=== PATIENT | male | born 1935 | race Caucasian/White ===

== ENCOUNTER 2020-03-12 10:33 | Inpatient (IN) | payer OTHER, MEDICARE ==
[2020-03-12] MEDS ORDERED: SODIUM CHLORIDE 1,000 ML IV STA ×2 (11:10→14:23)
[2020-03-12] MEDS ORDERED: ONDANSETRON 4 MG/2 ML VIAL IVPUSH ONE ×2 (11:11→14:37)
[2020-03-12] MEDS ORDERED: FAMOTIDINE 20 MG/50 ML IVPB 20 MG/50 ML MG IVPB ONE ×2 (11:11→11:38)
[2020-03-12 11:28] VITALS: BMI 28.1
[2020-03-12 12:09] LABS: BASO % 0.2 % (0-2.0); EOS % 0.5 % (0-4.5); HEMATOCRIT 31.9 % (35.4-49); HEMOGLOBIN 10.7 GM/dL (11.7-16.9); LYMPH % 8.1 % (8-40); MCH 35.6 pg (25.7-33.7); MCHC 33.6 g/dl (32.0-35.9); MEAN CELL VOLUME 106.1 fl (80-96); MEAN PLT VOLUME 11.2 fl (7.5-11.1); MONO % 6.4 % (3.8-10.2); NEUT % 84.8 % (42.8-82.8); PLATELET COUNT 79 K/MM3 (134-434); RBC 3.01 M/mm3 (4.00-5.60); RDW 15.8 % (11.9-15.9); WHITE BLOOD COUNT 7.9 K/mm3 (4.0-10.0)
[2020-03-12 12:11] LABS: INR 1.03 (0.83-1.09); PROTHROMBIN TIME (PATIENT) 12.6 SEC (9.7-13.0)
[2020-03-12 12:31] LABS: ANISOCYTOSIS 2+; MACROCYTOSIS 2+; OVALOCYTE 1+; PLATELET ESTIMATE DECREASED
[2020-03-12 12:35] LABS: POTASSIUM 4.2 mmol/L (3.5-5.1)
[2020-03-12 12:37] LABS: CALCIUM 9.8 mg/dL (8.5-10.1)
[2020-03-12 12:38] LABS: ALBUMIN 3.1 g/dl (3.4-5.0); BLOOD UREA NITROGEN 44.9 mg/dL (7-18); MAGNESIUM 2.2 mg/dL (1.8-2.4)
[2020-03-12 12:41] LABS: CREATININE 1.6 mg/dL (0.55-1.3)
[2020-03-12 12:42] LABS: BILIRUBIN,TOTAL 0.9 mg/dL (0.2-1); TOT PROT 7.8 g/dl (6.4-8.2)
[2020-03-12] MEDS ORDERED: SODIUM CHLORIDE 1,000 ML IV SCH (15:00)
[2020-03-12] MEDS ORDERED: PIPERACILLIN/TAZOB 4.5 GM 4.5 GM in DEXTROSE 5%-WATER 100 ML IVPB ONE (17:04)
[2020-03-12 19:30] VITALS: BP 123/69; PULSE 108
[2020-03-12] MEDS ORDERED: ACETAMINOPHEN 1000 MG/100 ML VIAL (NON FORMULARY) IVPB ONE (20:46)
[2020-03-12] MEDS ORDERED: ACETAMINOPHEN INJECTION 100 ML IVPB ONE (20:50)
[2020-03-12 20:54] VITALS: TEMP 99.5
== END 2020-03-13 01:09 | disposition short-term general hospital (02) | DRG 394 ==
LOC: JER 10:33 → SUPCPDRO 10:33 → JERBED 17:32
DX: K35.80 Unspecified acute appendicitis (principal); K56.609 Unspecified intestinal obstruction, unspecified as to partial versus complete obstruction; D46.9 Myelodysplastic syndrome, unspecified; E86.0 Dehydration; Z85.46 Personal history of malignant neoplasm of prostate
CPT/HCPCS: 36415; 71045-TC-FY; 74019-TC-FY; 74176-TC; 80053; 83605; 83690; 83735; 85025; 85610; 87040; 93005; 93010; 99285-25; C9803; J0131; Q9967; U0003

== ENCOUNTER 2020-04-10 13:22 | Day surgery (SDC) | payer OTHER, MEDICARE ==
[2020-04-10 08:23] LABS: BASO % 0.4 % (0-2.0); EOS % 2.4 % (0-4.5); HEMATOCRIT 23.2 % (35.4-49); HEMOGLOBIN 7.6 GM/dL (11.7-16.9); LYMPH % 44.4 % (8-40); MCH 33.4 pg (25.7-33.7); MCHC 32.7 g/dl (32.0-35.9); MEAN CELL VOLUME 102.3 fl (80-96); MEAN PLT VOLUME 10.5 fl (7.5-11.1); MONO % 18.2 % (3.8-10.2); NEUT % 34.6 % (42.8-82.8); PLATELET COUNT 81 K/MM3 (134-434); RBC 2.27 M/mm3 (4.00-5.60); RDW 19.8 % (11.9-15.9); WHITE BLOOD COUNT 3.4 K/mm3 (4.0-10.0)
[2020-04-10 08:54] LABS: BILIRUBIN,TOTAL 0.8 mg/dL (0.2-1); BLOOD UREA NITROGEN 34.2 mg/dL (7-18); CALCIUM 8.6 mg/dL (8.5-10.1); CREATININE 1.4 mg/dL (0.55-1.3); MAGNESIUM 1.6 mg/dL (1.8-2.4); POTASSIUM 4.3 mmol/L (3.5-5.1); TOT PROT 7.8 g/dl (6.4-8.2)
[2020-04-10 14:47] VITALS: BP 110/56; PULSE 77; TEMP 98.6
== END 2020-04-10 15:03 | disposition home or self-care (01) ==
LOC: JONCBLOOD 13:22
PROVIDERS: ATTEND Internal Medicine Hematology & Oncology
PROC: 30233N1 Transfusion of Nonautologous Red Blood Cells into Peripheral Vein, Percutaneous Approach (ICD-10-PCS; principal; 2020-04-10)
DX: D46.9 Myelodysplastic syndrome, unspecified (principal)
CPT/HCPCS: 36415; 36430; 36511; 80053; 83735; 85025; 86850; 86900; 86901; 86922; P9016; P9038

== ENCOUNTER 2020-04-11 07:24 | Day surgery (SDC) | payer OTHER, MEDICARE ==
[2020-04-11] MEDS ORDERED: MAGNESIUM 1GM/D5W - 1 GM/100 ML IVPB IVPB SCH (08:00)
[2020-04-11] MEDS ORDERED: MAGNESIUM SULFATE IN WATER 2 GM/50 ML IVPB IVPB ONE (09:00)
[2020-04-11 14:50] LABS: BASO % 0.5 % (0-2.0); HEMATOCRIT 27.9 % (35.4-49); HEMOGLOBIN 9.4 GM/dL (11.7-16.9); LYMPH % 35.5 % (8-40); MCHC 33.5 g/dl (32.0-35.9); MEAN CELL VOLUME 95.6 fl (80-96); MONO % 23.4 % (3.8-10.2); NEUT % 39.6 % (42.8-82.8); PLATELET COUNT 89 K/MM3 (134-434); RBC 2.92 M/mm3 (4.00-5.60); RDW 23.8 % (11.9-15.9)
[2020-04-11 17:32] LABS: ANISOCYTOSIS 2+; MACROCYTOSIS 0; OVALOCYTE 1+; PLATELET ESTIMATE DECREASED; TARGET CELLS 1+
== END 2020-04-11 13:00 | disposition home or self-care (01) ==
LOC: JONCNONCHE 07:24
PROVIDERS: ATTEND Internal Medicine Hematology & Oncology
DX: Z53.8 Procedure and treatment not carried out for other reasons (principal)
CPT/HCPCS: 36415; 85025; 96365

== ENCOUNTER 2020-05-01 08:15 | Day surgery (SDC) | payer OTHER, MEDICARE ==
[2020-05-01] MEDS ORDERED: TBO-FILGRASTIM 480 MCG/0.8 ML DISP.SYRIN SQ ONE (10:00)
[2020-05-01] MEDS ORDERED: EPOETIN ALFA-EPBX 40,000 UNIT/ML VIAL SQ ONE (10:00)
[2020-05-01 12:36] VITALS: BP 142/72; PULSE 97; TEMP 98.1
== END 2020-05-01 08:50 | disposition home or self-care (01) ==
LOC: JONCCHEMO 08:15
PROVIDERS: ATTEND Internal Medicine
PROC: 3E013GC Introduction of Other Therapeutic Substance into Subcutaneous Tissue, Percutaneous Approach (ICD-10-PCS; principal; 2020-05-01)
PROC: 3E013GC Introduction of Other Therapeutic Substance into Subcutaneous Tissue, Percutaneous Approach (ICD-10-PCS; 2020-05-01)
DX: D46.9 Myelodysplastic syndrome, unspecified (principal)
CPT/HCPCS: 96372; J1447; Q5106

== ENCOUNTER 2021-04-23 09:29 | Day surgery (SDC) | payer OTHER, MEDICARE ==
[2021-04-23] MEDS ORDERED: EPOETIN ALFA EPBX SQ ONE (10:00)
[2021-04-23] MEDS ORDERED: TBO-FILGRASTIM 480 MCG/0.8 ML DISP.SYRIN SQ ONE (10:00)
[2021-04-23 16:43] VITALS: BP 126/88; PULSE 88; TEMP 97.7
== END 2021-04-23 13:15 | disposition home or self-care (01) ==
LOC: JONCCHEMO 09:29
PROVIDERS: ATTEND Internal Medicine Hematology & Oncology
PROC: 3E033GC Introduction of Other Therapeutic Substance into Peripheral Vein, Percutaneous Approach (ICD-10-PCS; principal; 2021-04-23)
PROC: 3E033GC Introduction of Other Therapeutic Substance into Peripheral Vein, Percutaneous Approach (ICD-10-PCS; 2021-04-23)
DX: Z76.89 Persons encountering health services in other specified circumstances (principal); D46.9 Myelodysplastic syndrome, unspecified
CPT/HCPCS: 96372; J1447; Q5106

== ENCOUNTER 2021-04-30 07:16 | Day surgery (SDC) | payer OTHER, MEDICARE ==
[2021-04-30] MEDS ORDERED: TBO-FILGRASTIM 480 MCG/0.8 ML DISP.SYRIN SQ ONE (10:00)
[2021-04-30] MEDS ORDERED: EPOETIN ALFA EPBX SQ ONE (10:00)
[2021-04-30 15:13] VITALS: BP 122/61; PULSE 86; TEMP 98.5
== END 2021-04-30 13:12 | disposition home or self-care (01) ==
LOC: JONCCHEMO 07:16
PROVIDERS: ATTEND Internal Medicine Hematology & Oncology
DX: D46.9 Myelodysplastic syndrome, unspecified (principal); D69.59 Other secondary thrombocytopenia; Z76.89 Persons encountering health services in other specified circumstances
CPT/HCPCS: 96367; 96372; 96413; 96415; J1447; Q5106

== ENCOUNTER 2021-07-04 13:07 | Inpatient (IN) | payer OTHER, MEDICARE ==
[2021-07-04 14:28] LABS: BASO % 0.2 % (0-2.0); EOS % 0.4 % (0-4.5); HEMATOCRIT 21.9 % (35.4-49); HEMOGLOBIN 7.4 GM/dL (11.7-16.9); MCH 34.5 pg (25.7-33.7); MCHC 33.6 g/dl (32.0-35.9); MEAN CELL VOLUME 102.9 fl (80-96); MEAN PLT VOLUME 10.8 fl (7.5-11.1); MONO % 8.7 % (3.8-10.2); NEUT % 78.7 % (42.8-82.8); PLATELET COUNT 65 10^3/uL (134-434); RBC 2.13 M/mm3 (4.00-5.60); RDW 18.6 % (11.9-15.9); WHITE BLOOD COUNT 12.1 K/mm3 (4.0-10.0)
[2021-07-04 14:37] LABS: EPI CELLS 16 /uL (0-25.1); HYALINE CASTS 3 /uL (0-3.1); URINE APPEARANCE CLOUDY; URINE BACTERIA 11 /uL (0-1359); URINE BILIRUBIN NEGATIVE (NEGATIVE); URINE COLOR ORANGE; URINE GLUCOSE (UA) NEGATIVE (NEGATIVE); URINE KETONE NEGATIVE (NEGATIVE); URINE LEUK ESTERASE 1+ (NEGATIVE); URINE NITRITE NEGATIVE (NEGATIVE); URINE PROTEIN 2+ (NEGATIVE); URINE RBC 4162 /uL (0-23.9); URINE UROBILINOGEN 0.2 mg/dL (0.2-1.0); URINE WBC 170 /uL (0-25.8)
[2021-07-04 14:46] LABS: ALBUMIN 3.2 g/dl (3.4-5.0); BLOOD UREA NITROGEN 55.9 mg/dL (7-18); CALCIUM 8.8 mg/dL (8.5-10.1)
[2021-07-04 14:49] LABS: CREATININE 2.4 mg/dL (0.55-1.3)
[2021-07-04 14:51] LABS: BILIRUBIN,TOTAL 0.7 mg/dL (0.2-1); TOT PROT 7.5 g/dl (6.4-8.2)
[2021-07-04] MEDS ORDERED: SODIUM CHLORIDE 0.9% 500 ML INFUS.BAG IV ONE (16:17)
[2021-07-04] MEDS ORDERED: CEFTRIAXONE 1 GM/50 ML BAG ONE (16:50)
[2021-07-04] MEDS ORDERED: TAMSULOSIN HCL 0.4 MG CAP PO ONE (16:51)
[2021-07-04] MEDS ORDERED: LIDOCAINE HCL 2% JELLY 10 ML CARTRIDGE ONE ×2 (17:12→19:14)
[2021-07-04] MEDS ORDERED: TAMSULOSIN HCL 0.4 MG CAP ONE (17:47)
[2021-07-04] MEDS ORDERED: amLODIPine BESYLATE 5 MG TABLET (FP) PO SCH (18:00)
[2021-07-04] MEDS ORDERED: FAMOTIDINE 10 MG TABLET PO SCH (18:15)
[2021-07-04] MEDS ORDERED: ACETAMINOPHEN 1000 MG/100 ML BAG IVPB ONE (19:20)
[2021-07-04] MEDS ORDERED: oxyCODONE HCL 5 MG TABLET PO ONE (21:10)
[2021-07-04] MEDS ORDERED: ACETAMINOPHEN 1000 MG/100 ML BAG IVPB PRN (21:11)
[2021-07-04] MEDS ORDERED: HEPARIN NA (PORCINE) 5,000 UNITS/ML 1ML VIAL SQ SCH (22:00)
[2021-07-04] MEDS ORDERED: METOPROLOL TARTRATE 50 MG TABLET (FP) PO SCH (22:00)
[2021-07-04 22:47] VITALS: BMI 29.7
[2021-07-05] MEDS ORDERED: METOPROLOL TARTRATE 50 MG TABLET (FP) PO SCH (07:00)
[2021-07-05] MEDS ORDERED: LIDOCAINE HCL/PF 2% SDV 5ML VIAL ONE (07:59)
[2021-07-05] MEDS ORDERED: PROPOFOL 20 ML ONE ×2 (07:59)
[2021-07-05] MEDS ORDERED: ONDANSETRON 4 MG/2 ML VIAL IVPUSH PRN ×2 (08:18→09:08)
[2021-07-05] MEDS ORDERED: ROCURONIUM BROMIDE 50 MG/5 ML SYRINGE ONE (08:26)
[2021-07-05] MEDS ORDERED: SUCCINYLCHOLINE CHLORIDE 200 MG/10 ML SYRINGE ONE (08:26)
[2021-07-05] MEDS ORDERED: SODIUM CHLORIDE 1,000 ML IV SCH (08:30)
[2021-07-05 09:07] LABS: BASO % 0.4 % (0-2.0); EOS % 0.9 % (0-4.5); HEMATOCRIT 21.3 % (35.4-49); HEMOGLOBIN 7.5 GM/dL (11.7-16.9); LYMPH % 21.3 % (8-40); MCH 37.2 pg (25.7-33.7); MCHC 34.9 g/dl (32.0-35.9); MEAN CELL VOLUME 106.6 fl (80-96); MEAN PLT VOLUME 11.4 fl (7.5-11.1); MONO % 9.9 % (3.8-10.2); NEUT % 67.5 % (42.8-82.8); PLATELET COUNT 65 10^3/uL (134-434); RDW 18.6 % (11.9-15.9); WHITE BLOOD COUNT 6.1 K/mm3 (4.0-10.0)
[2021-07-05] MEDS ORDERED: ACETAMINOPHEN 1000 MG/100 ML BAG IVPB PRN (09:08)
[2021-07-05 09:25] LABS: ALBUMIN 3.1 g/dl (3.4-5.0); BLOOD UREA NITROGEN 48.2 mg/dL (7-18)
[2021-07-05] MEDS ORDERED: cefTRIAXone SODIUM 1 GM VIAL IVPB ONE (09:25)
[2021-07-05 09:28] LABS: CALCIUM 8.7 mg/dL (8.5-10.1)
[2021-07-05 09:30] LABS: BILIRUBIN,TOTAL 0.8 mg/dL (0.2-1); TOT PROT 7.4 g/dl (6.4-8.2)
[2021-07-05] MEDS ORDERED: cefTRIAXone SODIUM 1 GM VIAL ONE (09:30)
[2021-07-05 09:32] LABS: INR 1.18 (0.83-1.09); PROTHROMBIN TIME (PATIENT) 13.6 SEC (9.7-13.0)
[2021-07-05 09:33] LABS: ACTIVATED PTT 31.9 SECONDS (25.2-36.5)
[2021-07-05] MEDS ORDERED: CEFTRIAXONE 1 GM in DEXTROSE 5%-WATER - 50 ML IVPB SCH (10:00)
[2021-07-05] MEDS: SODIUM CHLORIDE 1,000 ML IV SCH (10:00)
[2021-07-05] MEDS ORDERED: POLYETHYLENE GLYCOL (HEALTHYLAX) 3350 17 GM PACKET PO SCH (10:00)
[2021-07-05] MEDS ORDERED: HYDROCHLOROTHIAZIDE 12.5 MG CAPSULE (FP) PO SCH (10:00)
[2021-07-05] MEDS ORDERED: LISINOPRIL 5 MG TABLET PO SCH (10:00)
[2021-07-05] MEDS ORDERED: TAMSULOSIN HCL 0.4 MG CAP PO SCH (10:00)
[2021-07-05] MEDS: CEFTRIAXONE 1 GM in DEXTROSE 5%-WATER - 50 ML IVPB SCH (10:05)
[2021-07-05 10:08] LABS: ANISOCYTOSIS 2+; MACROCYTOSIS 2+; OVALOCYTE 2+
[2021-07-05] MEDS: POLYETHYLENE GLYCOL (HEALTHYLAX) 3350 17 GM PACKET PO SCH (10:16)
[2021-07-05] MEDS: FAMOTIDINE 10 MG TABLET PO SCH (10:16)
[2021-07-05] MEDS: TAMSULOSIN HCL 0.4 MG CAP PO SCH (10:16)
[2021-07-05] MEDS: METOPROLOL TARTRATE 50 MG TABLET (FP) PO SCH (22:48)
[2021-07-05] MEDS ORDERED: ACETAMINOPHEN 1000 MG/100 ML BAG IVPB ONE (23:40)
[2021-07-06] MEDS ORDERED: oxyCODONE HCL 5 MG TABLET PO PRN (01:10)
[2021-07-06 02:35] LABS: HEMATOCRIT 21.6 % (35.4-49); HEMOGLOBIN 7.3 GM/dL (11.7-16.9); MCH 33.3 pg (25.7-33.7); MCHC 33.9 g/dl (32.0-35.9); MEAN CELL VOLUME 98.3 fl (80-96); MEAN PLT VOLUME 10.5 fl (7.5-11.1); PLATELET COUNT 72 10^3/uL (134-434); RDW 22.4 % (11.9-15.9)
[2021-07-06 02:48] LABS: INR 1.21 (0.83-1.09); PROTHROMBIN TIME (PATIENT) 13.9 SEC (9.7-13.0)
[2021-07-06 02:50] LABS: ACTIVATED PTT 32.8 SECONDS (25.2-36.5)
[2021-07-06] MEDS: METOPROLOL TARTRATE 50 MG TABLET (FP) PO SCH ×2 (07:02→21:49)
[2021-07-06 09:05] LABS: BASO % 0.3 % (0-2.0); EOS % 1.3 % (0-4.5); HEMATOCRIT 22.3 % (35.4-49); HEMOGLOBIN 7.6 GM/dL (11.7-16.9); LYMPH % 27.5 % (8-40); MCH 33.6 pg (25.7-33.7); MCHC 34.1 g/dl (32.0-35.9); MEAN CELL VOLUME 98.6 fl (80-96); MEAN PLT VOLUME 10.3 fl (7.5-11.1); MONO % 16.9 % (3.8-10.2); PLATELET COUNT 78 10^3/uL (134-434); RBC 2.26 M/mm3 (4.00-5.60); RDW 22.2 % (11.9-15.9); WHITE BLOOD COUNT 3.7 K/mm3 (4.0-10.0)
[2021-07-06] MEDS: TAMSULOSIN HCL 0.4 MG CAP PO SCH (09:15)
[2021-07-06] MEDS ORDERED: DEXTROSE 5%-WATER - 50 ML IVPB ONE (09:37)
[2021-07-06] MEDS ORDERED: cefTRIAXone SODIUM 1 GM VIAL ONE (09:37)
[2021-07-06] MEDS: CEFTRIAXONE 1 GM in DEXTROSE 5%-WATER - 50 ML IVPB SCH (09:55)
[2021-07-06] MEDS: FAMOTIDINE 10 MG TABLET PO SCH (09:55)
[2021-07-06] MEDS: POLYETHYLENE GLYCOL (HEALTHYLAX) 3350 17 GM PACKET PO SCH (09:57)
[2021-07-06] MEDS ORDERED: ACETAMINOPHEN 325 MG TABLET (FP) PO ONE (10:00)
[2021-07-06 10:27] LABS: ALBUMIN 2.8 g/dl (3.4-5.0); BILIRUBIN,TOTAL 0.8 mg/dL (0.2-1); BLOOD UREA NITROGEN 35.4 mg/dL (7-18); CALCIUM 8.2 mg/dL (8.5-10.1); CREATININE 1.7 mg/dL (0.55-1.3); MAGNESIUM 1.9 mg/dL (1.8-2.4); PHOSPHOROUS 3.6 mg/dL (2.5-4.9)
[2021-07-06] MEDS: LACTATED RINGERS SOLUTION 1,000 ML/1,000 ML INFUS.BAG IV SCH (11:45)
[2021-07-06] MEDS: SODIUM CHLORIDE 1,000 ML IV SCH (12:53)
[2021-07-06] MEDS: PHENAZOPYRIDINE HCL 100 MG TABLET (FP) PO SCH (17:47)
[2021-07-07] MEDS: LACTATED RINGERS SOLUTION 1,000 ML/1,000 ML INFUS.BAG IV SCH ×2 (02:13→17:05)
[2021-07-07] MEDS: METOPROLOL TARTRATE 50 MG TABLET (FP) PO SCH ×2 (06:13→21:26)
[2021-07-07] MEDS: PHENAZOPYRIDINE HCL 100 MG TABLET (FP) PO SCH ×4 (09:04→19:35)
[2021-07-07 09:50] LABS: BASO % 0.3 % (0-2.0); EOS % 2.2 % (0-4.5); HEMATOCRIT 24.8 % (35.4-49); HEMOGLOBIN 8.4 GM/dL (11.7-16.9); LYMPH % 31.1 % (8-40); MCH 33.1 pg (25.7-33.7); MCHC 33.8 g/dl (32.0-35.9); MEAN CELL VOLUME 97.9 fl (80-96); MEAN PLT VOLUME 10.8 fl (7.5-11.1); NEUT % 47.4 % (42.8-82.8); PLATELET COUNT 104 10^3/uL (134-434); RBC 2.53 M/mm3 (4.00-5.60); RDW 23.5 % (11.9-15.9); WHITE BLOOD COUNT 3.4 K/mm3 (4.0-10.0)
[2021-07-07] MEDS ORDERED: cefTRIAXone SODIUM 1 GM VIAL ONE (09:52)
[2021-07-07] MEDS ORDERED: DEXTROSE 5%-WATER - 50 ML IVPB ONE (09:52)
[2021-07-07] MEDS: TAMSULOSIN HCL 0.4 MG CAP PO SCH (10:01)
[2021-07-07] MEDS: CEFTRIAXONE 1 GM in DEXTROSE 5%-WATER - 50 ML IVPB SCH (10:01)
[2021-07-07] MEDS: POLYETHYLENE GLYCOL (HEALTHYLAX) 3350 17 GM PACKET PO SCH (10:01)
[2021-07-07] MEDS: FAMOTIDINE 10 MG TABLET PO SCH (10:01)
[2021-07-07 10:16] LABS: CALCIUM 8.3 mg/dL (8.5-10.1)
[2021-07-07 10:17] LABS: ALBUMIN 2.9 g/dl (3.4-5.0); MAGNESIUM 1.5 mg/dL (1.8-2.4)
[2021-07-07 10:20] LABS: CREATININE 1.5 mg/dL (0.55-1.3); PHOSPHOROUS 2.7 mg/dL (2.5-4.9)
[2021-07-07 10:21] LABS: BILIRUBIN,TOTAL 0.8 mg/dL (0.2-1); TOT PROT 7.2 g/dl (6.4-8.2)
[2021-07-07] MEDS: SODIUM CHLORIDE 1,000 ML IV SCH (10:30)
[2021-07-08] MEDS: ACETAMINOPHEN 325 MG TABLET (FP) PO PRN ×3 (06:04→21:15)
[2021-07-08] MEDS: METOPROLOL TARTRATE 50 MG TABLET (FP) PO SCH ×2 (06:04→21:11)
[2021-07-08] MEDS ORDERED: cefTRIAXone SODIUM 1 GM VIAL ONE (08:48)
[2021-07-08] MEDS ORDERED: DEXTROSE 5%-WATER - 50 ML IVPB ONE (08:49)
[2021-07-08 09:00] LABS: BASO % 0.5 % (0-2.0); EOS % 1.7 % (0-4.5); LYMPH % 32.8 % (8-40); MCH 33.4 pg (25.7-33.7); MCHC 34.7 g/dl (32.0-35.9); MEAN CELL VOLUME 96.5 fl (80-96); MEAN PLT VOLUME 9.3 fl (7.5-11.1); MONO % 17.4 % (3.8-10.2); NEUT % 47.6 % (42.8-82.8); PLATELET COUNT 85 10^3/uL (134-434); RBC 2.38 M/mm3 (4.00-5.60); RDW 22.5 % (11.9-15.9); WHITE BLOOD COUNT 3.7 K/mm3 (4.0-10.0)
[2021-07-08] MEDS: FAMOTIDINE 10 MG TABLET PO SCH (09:07)
[2021-07-08] MEDS: CEFTRIAXONE 1 GM in DEXTROSE 5%-WATER - 50 ML IVPB SCH (09:07)
[2021-07-08] MEDS: PHENAZOPYRIDINE HCL 100 MG TABLET (FP) PO SCH ×3 (09:08→17:37)
[2021-07-08] MEDS: TAMSULOSIN HCL 0.4 MG CAP PO SCH (09:08)
[2021-07-08] MEDS: POLYETHYLENE GLYCOL (HEALTHYLAX) 3350 17 GM PACKET PO SCH (09:09)
[2021-07-08 09:31] LABS: ALBUMIN 2.6 g/dl (3.4-5.0); CALCIUM 8.8 mg/dL (8.5-10.1)
[2021-07-08 09:34] LABS: CREATININE 1.4 mg/dL (0.55-1.3)
[2021-07-08 09:36] LABS: BILIRUBIN,TOTAL 0.9 mg/dL (0.2-1)
[2021-07-08 10:07] LABS: ANISOCYTOSIS 2+; MACROCYTOSIS 1+
[2021-07-08] MEDS ORDERED: MAGNESIUM OXIDE 400 MG TABLET (FP) PO ONE (11:35)
[2021-07-08] MEDS: LACTATED RINGERS SOLUTION 1,000 ML/1,000 ML INFUS.BAG IV SCH (12:19)
[2021-07-08] MEDS: COLCHICINE 0.6 MG CAP PO SCH ×2 (12:19→21:11)
[2021-07-09] MEDS: ACETAMINOPHEN 325 MG TABLET (FP) PO PRN ×2 (04:57→10:24)
[2021-07-09] MEDS: METOPROLOL TARTRATE 50 MG TABLET (FP) PO SCH ×2 (06:24→21:44)
[2021-07-09] MEDS ORDERED: DEXTROSE 5%-WATER - 50 ML IVPB ONE ×2 (08:50→12:00)
[2021-07-09] MEDS ORDERED: cefTRIAXone SODIUM 1 GM VIAL ONE (08:50)
[2021-07-09] MEDS: TAMSULOSIN HCL 0.4 MG CAP PO SCH (08:58)
[2021-07-09] MEDS: PHENAZOPYRIDINE HCL 100 MG TABLET (FP) PO SCH ×3 (08:58→17:34)
[2021-07-09] MEDS: FAMOTIDINE 10 MG TABLET PO SCH (08:59)
[2021-07-09] MEDS: CEFTRIAXONE 1 GM in DEXTROSE 5%-WATER - 50 ML IVPB SCH ×2 (08:59→13:35)
[2021-07-09] MEDS: COLCHICINE 0.6 MG CAP PO SCH (08:59)
[2021-07-09] MEDS: POLYETHYLENE GLYCOL (HEALTHYLAX) 3350 17 GM PACKET PO SCH (09:00)
[2021-07-09 09:35] LABS: BASO % 0.4 % (0-2.0); EOS % 1.2 % (0-4.5); HEMATOCRIT 26.6 % (35.4-49); HEMOGLOBIN 9.2 GM/dL (11.7-16.9); LYMPH % 31.3 % (8-40); MCH 34.4 pg (25.7-33.7); MCHC 34.6 g/dl (32.0-35.9); MEAN CELL VOLUME 99.5 fl (80-96); MEAN PLT VOLUME 10.4 fl (7.5-11.1); MONO % 14.3 % (3.8-10.2); NEUT % 52.8 % (42.8-82.8); PLATELET COUNT 92 10^3/uL (134-434); RBC 2.67 M/mm3 (4.00-5.60); RDW 20.6 % (11.9-15.9); WHITE BLOOD COUNT 3.7 K/mm3 (4.0-10.0)
[2021-07-09 10:09] LABS: CALCIUM 8.8 mg/dL (8.5-10.1)
[2021-07-09 10:10] LABS: ALBUMIN 2.6 g/dl (3.4-5.0); BLOOD UREA NITROGEN 22.9 mg/dL (7-18); MAGNESIUM 1.5 mg/dL (1.8-2.4)
[2021-07-09 10:13] LABS: CREATININE 1.3 mg/dL (0.55-1.3); PHOSPHOROUS 3.3 mg/dL (2.5-4.9)
[2021-07-09 10:14] LABS: BILIRUBIN,TOTAL 1.6 mg/dL (0.2-1)
[2021-07-09 10:15] LABS: TOT PROT 7.2 g/dl (6.4-8.2)
[2021-07-09] MEDS ORDERED: MAGNESIUM OXIDE 400 MG TABLET (FP) PO ONE (10:58)
[2021-07-09] MEDS ORDERED: PIPERACILLIN/TAZOB 3.375 GM 3.375 GM in DEXTROSE 5%-WATER - 50 ML IVPB SCH (11:15)
[2021-07-09] MEDS ORDERED: PIPERACILLIN/TAZOBACTAM 3.375 GM VIAL IVPB ONE (12:00)
[2021-07-09 13:31] LABS: EPI CELLS 27 /uL (0-25.1); HYALINE CASTS 1 /uL (0-3.1); PH,URINE 6.5 (5.0-8.0); URINE APPEARANCE CLEAR; URINE BILIRUBIN 1+ (NEGATIVE); URINE COLOR RED; URINE GLUCOSE (UA) NEGATIVE (NEGATIVE); URINE KETONE NEGATIVE (NEGATIVE); URINE LEUK ESTERASE 1+ (NEGATIVE); URINE NITRITE POSITIVE (NEGATIVE); URINE PROTEIN 3+ (NEGATIVE); URINE RBC 11742 /uL (0-23.9); URINE UROBILINOGEN 0.2 mg/dL (0.2-1.0); URINE WBC 100 /uL (0-25.8)
[2021-07-10] MEDS: METOPROLOL TARTRATE 50 MG TABLET (FP) PO SCH ×2 (06:14→21:36)
[2021-07-10] MEDS: TAMSULOSIN HCL 0.4 MG CAP PO SCH (08:43)
[2021-07-10 09:00] LABS: HEMATOCRIT 26.6 % (35.4-49); HEMOGLOBIN 9.2 GM/dL (11.7-16.9); MCH 32.9 pg (25.7-33.7); MCHC 34.5 g/dl (32.0-35.9); MEAN CELL VOLUME 95.4 fl (80-96); PLATELET COUNT 82 10^3/uL (134-434); RBC 2.79 M/mm3 (4.00-5.60); RDW 20.8 % (11.9-15.9); WHITE BLOOD COUNT 2.6 K/mm3 (4.0-10.0)
[2021-07-10] MEDS ORDERED: cefTRIAXone SODIUM 1 GM VIAL ONE (09:12)
[2021-07-10] MEDS ORDERED: DEXTROSE 5%-WATER - 50 ML IVPB ONE (09:12)
[2021-07-10] MEDS: POLYETHYLENE GLYCOL (HEALTHYLAX) 3350 17 GM PACKET PO SCH (09:16)
[2021-07-10] MEDS: FAMOTIDINE 10 MG TABLET PO SCH (09:16)
[2021-07-10] MEDS: PHENAZOPYRIDINE HCL 100 MG TABLET (FP) PO SCH ×3 (09:16→18:04)
[2021-07-10] MEDS: CEFTRIAXONE 1 GM in DEXTROSE 5%-WATER - 50 ML IVPB SCH (09:16)
[2021-07-10 09:18] LABS: CALCIUM 8.7 mg/dL (8.5-10.1)
[2021-07-10 09:19] LABS: ALBUMIN 2.6 g/dl (3.4-5.0); BLOOD UREA NITROGEN 28.2 mg/dL (7-18); MAGNESIUM 1.8 mg/dL (1.8-2.4)
[2021-07-10 09:22] LABS: CREATININE 1.3 mg/dL (0.55-1.3)
[2021-07-10 09:24] LABS: BILIRUBIN,TOTAL 0.8 mg/dL (0.2-1); TOT PROT 7.4 g/dl (6.4-8.2)
[2021-07-10] MEDS: ACETAMINOPHEN 325 MG TABLET (FP) PO PRN (11:25)
[2021-07-10] MEDS ORDERED: EPOETIN ALFA-EPBX 20,000 UNIT/ML VIAL SQ ONE (16:30)
[2021-07-10] MEDS ORDERED: EPOETIN ALFA-EPBX 40,000 UNIT/ML VIAL SQ ONE (16:30)
[2021-07-10] MEDS ORDERED: TBO-FILGRASTIM 480 MCG/0.8 ML DISP.SYRIN SQ ONE (16:40)
[2021-07-11] MEDS: METOPROLOL TARTRATE 50 MG TABLET (FP) PO SCH ×2 (06:12→21:44)
[2021-07-11 08:26] LABS: HEMATOCRIT 27.3 % (35.4-49); HEMOGLOBIN 9.1 GM/dL (11.7-16.9); MCH 32.2 pg (25.7-33.7); MCHC 33.3 g/dl (32.0-35.9); MEAN CELL VOLUME 96.9 fl (80-96); MEAN PLT VOLUME 9.6 fl (7.5-11.1); PLATELET COUNT 73 10^3/uL (134-434); RBC 2.82 M/mm3 (4.00-5.60); RDW 20.6 % (11.9-15.9); WHITE BLOOD COUNT 16.6 K/mm3 (4.0-10.0)
[2021-07-11 08:50] LABS: ALBUMIN 2.6 g/dl (3.4-5.0); CALCIUM 8.9 mg/dL (8.5-10.1)
[2021-07-11 08:51] LABS: BLOOD UREA NITROGEN 29.2 mg/dL (7-18)
[2021-07-11 08:53] LABS: CREATININE 1.3 mg/dL (0.55-1.3)
[2021-07-11 08:55] LABS: BILIRUBIN,TOTAL 0.9 mg/dL (0.2-1); TOT PROT 7.2 g/dl (6.4-8.2)
[2021-07-11] MEDS: CEFTRIAXONE 1 GM in DEXTROSE 5%-WATER - 50 ML IVPB SCH (09:02)
[2021-07-11] MEDS: FAMOTIDINE 10 MG TABLET PO SCH (09:02)
[2021-07-11] MEDS: POLYETHYLENE GLYCOL (HEALTHYLAX) 3350 17 GM PACKET PO SCH (09:02)
[2021-07-11] MEDS: TAMSULOSIN HCL 0.4 MG CAP PO SCH (09:02)
[2021-07-11] MEDS: PHENAZOPYRIDINE HCL 100 MG TABLET (FP) PO SCH ×3 (09:02→17:53)
[2021-07-11 10:44] LABS: ANISOCYTOSIS 1+; MACROCYTOSIS 1+
[2021-07-12] MEDS: METOPROLOL TARTRATE 50 MG TABLET (FP) PO SCH (06:26)
[2021-07-12 06:31] VITALS: PULSE 88
[2021-07-12] MEDS: PHENAZOPYRIDINE HCL 100 MG TABLET (FP) PO SCH ×2 (08:40→13:27)
[2021-07-12] MEDS: TAMSULOSIN HCL 0.4 MG CAP PO SCH (08:40)
[2021-07-12] MEDS: FAMOTIDINE 10 MG TABLET PO SCH (09:02)
[2021-07-12] MEDS: POLYETHYLENE GLYCOL (HEALTHYLAX) 3350 17 GM PACKET PO SCH (09:02)
[2021-07-12] MEDS: CEFTRIAXONE 1 GM in DEXTROSE 5%-WATER - 50 ML IVPB SCH (10:05)
[2021-07-12 10:43] VITALS: BP 120/67; TEMP 97.4
[2021-07-12 12:11] LABS: BASO % 0.3 % (0-2.0); EOS % 1.1 % (0-4.5); HEMOGLOBIN 8.9 GM/dL (11.7-16.9); LYMPH % 15.1 % (8-40); MCH 33.1 pg (25.7-33.7); MCHC 34.4 g/dl (32.0-35.9); MEAN CELL VOLUME 96.1 fl (80-96); MEAN PLT VOLUME 10.5 fl (7.5-11.1); MONO % 5.9 % (3.8-10.2); NEUT % 77.6 % (42.8-82.8); PLATELET COUNT 85 10^3/uL (134-434); WHITE BLOOD COUNT 9.3 K/mm3 (4.0-10.0)
[2021-07-12 12:33] LABS: CALCIUM 8.8 mg/dL (8.5-10.1)
[2021-07-12 12:34] LABS: ALBUMIN 2.9 g/dl (3.4-5.0); BLOOD UREA NITROGEN 33.8 mg/dL (7-18)
[2021-07-12 12:37] LABS: CREATININE 1.3 mg/dL (0.55-1.3)
[2021-07-12 12:38] LABS: BILIRUBIN,TOTAL 0.6 mg/dL (0.2-1); TOT PROT 7.4 g/dl (6.4-8.2)
== END 2021-07-12 16:55 | disposition home or self-care (01) | DRG 660 ==
LOC: JER 13:07 → JERBED 16:43 → J6S 20:45
PROC: 0TQD0ZZ Repair Urethra, Open Approach (ICD-10-PCS; 2021-07-05)
PROC: 0TC78ZZ Extirpation of Matter from Left Ureter, Via Natural or Artificial Opening Endoscopic (ICD-10-PCS; 2021-07-05)
PROC: BT1FZZZ Fluoroscopy of Left Kidney, Ureter and Bladder (ICD-10-PCS; 2021-07-05)
PROC: 30233N1 Transfusion of Nonautologous Red Blood Cells into Peripheral Vein, Percutaneous Approach (ICD-10-PCS; 2021-07-05)
PROC: 30233R1 Transfusion of Nonautologous Platelets into Peripheral Vein, Percutaneous Approach (ICD-10-PCS; 2021-07-05)
PROC: 0T778DZ Dilation of Left Ureter with Intraluminal Device, Via Natural or Artificial Opening Endoscopic (ICD-10-PCS; principal; 2021-07-05 08:00)
DX: N13.2 Hydronephrosis with renal and ureteral calculous obstruction (principal); D69.3 Immune thrombocytopenic purpura; D61.818 Other pancytopenia; E87.1 Hypo-osmolality and hyponatremia; D46.9 Myelodysplastic syndrome, unspecified; N17.9 Acute kidney failure, unspecified; I25.10 Atherosclerotic heart disease of native coronary artery without angina pectoris; I12.9 Hypertensive chronic kidney disease with stage 1 through stage 4 chronic kidney disease, or unspecified chronic kidney disease; K57.90 Diverticulosis of intestine, part unspecified, without perforation or abscess without bleeding; R33.9 Retention of urine, unspecified; N18.9 Chronic kidney disease, unspecified; C61 Malignant neoplasm of prostate; E78.5 Hyperlipidemia, unspecified; M10.9 Gout, unspecified; R31.0 Gross hematuria; N32.89 Other specified disorders of bladder; N35.919 Unspecified urethral stricture, male, unspecified site; K59.00 Constipation, unspecified; Z96.643 Presence of artificial hip joint, bilateral; Z96.611 Presence of right artificial shoulder joint; Z95.1 Presence of aortocoronary bypass graft; Z85.46 Personal history of malignant neoplasm of prostate
CPT/HCPCS: 36415; 36430; 71045-TC-FY; 74176-TC; 76000-TC-FY; 80053; 81003; 82360; 83605; 83735; 84100; 84550; 85025; 85027; 85384; 85610; 85730; 86850; 86900; 86901; 86922; 87040; 87086; 88300-TC; 93005; 93010; 94760; 97116-GP; 97161-GP; 99285-25; C9803; J1447; P9034; P9058; Q5106; U0003; U0005

== ENCOUNTER 2021-07-22 02:10 | Observation (INO) | payer OTHER, MEDICARE ==
[2021-07-22 02:47] VITALS: BMI 26.6
[2021-07-22 03:29] LABS: HEMATOCRIT 19.2 % (35.4-49); MCH 33.6 pg (25.7-33.7); MCHC 33.1 g/dl (32.0-35.9); MEAN CELL VOLUME 101.6 fl (80-96); PLATELET COUNT 70 10^3/uL (134-434); RBC 1.89 M/mm3 (4.00-5.60); RDW 20.3 % (11.9-15.9); WHITE BLOOD COUNT 2.9 K/mm3 (4.0-10.0)
[2021-07-22 03:32] LABS: HEMOGLOBIN 6.3 GM/dL (11.7-16.9)
[2021-07-22] MEDS ORDERED: ACETAMINOPHEN 1000 MG/100 ML BAG IVPB ONE (03:32)
[2021-07-22] MEDS ORDERED: ACETAMINOPHEN INJECTION 100 ML IVPB ONE (03:50)
[2021-07-22 03:52] LABS: CALCIUM 8.4 mg/dL (8.5-10.1)
[2021-07-22 03:53] LABS: BLOOD UREA NITROGEN 47.6 mg/dL (7-18)
[2021-07-22 03:56] LABS: CREATININE 1.6 mg/dL (0.55-1.3)
[2021-07-22 03:58] LABS: BILIRUBIN,TOTAL 0.7 mg/dL (0.2-1); TOT PROT 8.1 g/dl (6.4-8.2)
[2021-07-22 03:59] LABS: INR 1.15 (0.83-1.09); PROTHROMBIN TIME (PATIENT) 13.2 SEC (9.7-13.0)
[2021-07-22 04:02] LABS: ACTIVATED PTT 30.4 SECONDS (25.2-36.5)
[2021-07-22] MEDS ORDERED: ACETAMINOPHEN 650 MG/20.3 ML ORAL SOLUTION (CUPS) PO PRN (05:03)
[2021-07-22] MEDS: ATORVASTATIN CA 10 MG TABLET (FP) PO SCH (08:12)
[2021-07-22] MEDS: FAMOTIDINE 20 MG TABLET PO SCH (09:29)
[2021-07-22] MEDS: amLODIPine BESYLATE 5 MG TABLET (FP) PO SCH (09:29)
[2021-07-22] MEDS ORDERED: PATIENT'S OWN MEDICATION (NON-FORMULARY) (Amlodipine Besylate/Benazepril [Lotrel 5-20 Mg C PO SCH (10:00)
[2021-07-22] MEDS: ACETAMINOPHEN 325 MG TABLET (FP) PO PRN (10:00)
[2021-07-22 11:57] LABS: EPI CELLS 2 /uL (0-25.1); HYALINE CASTS 1 /uL (0-3.1); URINE APPEARANCE CLEAR; URINE BACTERIA 2 /uL (0-1359); URINE BILIRUBIN NEGATIVE (NEGATIVE); URINE COLOR YELLOW; URINE GLUCOSE (UA) NEGATIVE (NEGATIVE); URINE KETONE NEGATIVE (NEGATIVE); URINE LEUK ESTERASE NEGATIVE (NEGATIVE); URINE NITRITE NEGATIVE (NEGATIVE); URINE PROTEIN 1+ (NEGATIVE); URINE RBC 111 /uL (0-23.9); URINE UROBILINOGEN 0.2 mg/dL (0.2-1.0); URINE WBC 7 /uL (0-25.8)
[2021-07-22 16:15] LABS: HEMOGLOBIN 8.1 GM/dL (11.7-16.9); MCH 32.7 pg (25.7-33.7); MCHC 33.9 g/dl (32.0-35.9); MEAN CELL VOLUME 96.4 fl (80-96); MEAN PLT VOLUME 10.5 fl (7.5-11.1); PLATELET COUNT 68 10^3/uL (134-434); RBC 2.49 M/mm3 (4.00-5.60); RDW 20.3 % (11.9-15.9); WHITE BLOOD COUNT 2.6 K/mm3 (4.0-10.0)
[2021-07-22 16:34] LABS: ALBUMIN 3.2 g/dl (3.4-5.0); CALCIUM 8.7 mg/dL (8.5-10.1)
[2021-07-22 16:37] LABS: CREATININE 1.4 mg/dL (0.55-1.3)
[2021-07-22 16:39] LABS: BILIRUBIN,TOTAL 1.3 mg/dL (0.2-1)
[2021-07-22] MEDS ORDERED: METOPROLOL TARTRATE 50 MG TABLET (FP) PO SCH (22:00)
[2021-07-22] MEDS ORDERED: TAMSULOSIN HCL 0.4 MG CAP PO SCH (22:00)
[2021-07-23] MEDS: ATORVASTATIN CA 10 MG TABLET (FP) PO SCH ×2 (05:00→05:20)
[2021-07-23] MEDS ORDERED: EPOETIN ALFA-EPBX 20,000 UNIT/ML VIAL SQ ONE ×2 (06:06→10:00)
[2021-07-23 08:27] LABS: CALCIUM 8.9 mg/dL (8.5-10.1)
[2021-07-23 08:28] LABS: BLOOD UREA NITROGEN 32.1 mg/dL (7-18)
[2021-07-23] MEDS ORDERED: TAMSULOSIN HCL 0.4 MG CAP PO SCH ×2 (08:30→22:00)
[2021-07-23 08:31] LABS: CREATININE 1.3 mg/dL (0.55-1.3)
[2021-07-23] MEDS: FAMOTIDINE 20 MG TABLET PO SCH (09:59)
[2021-07-23] MEDS: amLODIPine BESYLATE 5 MG TABLET (FP) PO SCH (09:59)
[2021-07-23] MEDS ORDERED: HYDROCHLOROTHIAZIDE 25 MG TABLET (FP) PO SCH (10:00)
[2021-07-23] MEDS ORDERED: TBO-FILGRASTIM 480 MCG/0.8 ML DISP.SYRIN SQ ONE (10:00)
[2021-07-23] MEDS ORDERED: EPOETIN ALFA-EPBX 40,000 UNIT/ML VIAL SQ ONE ×2 (10:00)
[2021-07-23 12:17] LABS: HEMATOCRIT 23.4 % (35.4-49); HEMOGLOBIN 7.9 GM/dL (11.7-16.9); MCH 32.7 pg (25.7-33.7); MEAN CELL VOLUME 96.2 fl (80-96); MEAN PLT VOLUME 11.1 fl (7.5-11.1); PLATELET COUNT 71 10^3/uL (134-434); RBC 2.43 M/mm3 (4.00-5.60); RDW 20.8 % (11.9-15.9); WHITE BLOOD COUNT 2.8 K/mm3 (4.0-10.0)
[2021-07-23 12:21] LABS: ADD RBC MORPHOLOGY YES
[2021-07-23 13:24] LABS: BASO % 0.6 % (0-2.0); EOS % 2.6 % (0-4.5); HEMATOCRIT 24.2 % (35.4-49); HEMOGLOBIN 8.3 GM/dL (11.7-16.9); LYMPH % 48.7 % (8-40); MCH 32.8 pg (25.7-33.7); MCHC 34.2 g/dl (32.0-35.9); MEAN PLT VOLUME 10.4 fl (7.5-11.1); MONO % 9.5 % (3.8-10.2); NEUT % 38.6 % (42.8-82.8); PLATELET COUNT 72 10^3/uL (134-434); RBC 2.52 M/mm3 (4.00-5.60); RDW 20.7 % (11.9-15.9); WHITE BLOOD COUNT 2.8 K/mm3 (4.0-10.0)
[2021-07-23] MEDS: ACETAMINOPHEN 325 MG TABLET (FP) PO PRN (13:47)
[2021-07-23 14:37] LABS: ANISOCYTOSIS 1+; MACROCYTOSIS 0; OVALOCYTE 2+
[2021-07-23 18:17] VITALS: BP 134/66; PULSE 82; TEMP 97.7
== END 2021-07-23 18:46 | disposition home or self-care (01) ==
LOC: JER 02:10 → JERBED 02:47 → INTOOBSV 02:47 → J6S 06:10
PROVIDERS: ADMIT Hospitalist
PROC: 3E033NZ Introduction of Analgesics, Hypnotics, Sedatives into Peripheral Vein, Percutaneous Approach (ICD-10-PCS; principal; 2021-07-22)
PROC: 3E023GC Introduction of Other Therapeutic Substance into Muscle, Percutaneous Approach (ICD-10-PCS; 2021-07-22)
DX: D46.9 Myelodysplastic syndrome, unspecified (principal); I25.10 Atherosclerotic heart disease of native coronary artery without angina pectoris; I11.9 Hypertensive heart disease without heart failure; Z85.46 Personal history of malignant neoplasm of prostate; R79.89 Other specified abnormal findings of blood chemistry; K57.90 Diverticulosis of intestine, part unspecified, without perforation or abscess without bleeding; Z95.1 Presence of aortocoronary bypass graft; I13.10 Hypertensive heart and chronic kidney disease without heart failure, with stage 1 through stage 4 chronic kidney disease, or unspecified chronic kidney disease; N18.9 Chronic kidney disease, unspecified; Z95.5 Presence of coronary angioplasty implant and graft
CPT/HCPCS: 36415; 36430; 71045-TC-FY; 76775-TC; 80048; 80053; 81003; 82272; 84484; 85025; 85027; 85610; 85730; 86850; 86900; 86901; 86922; 87086; 93005; 93010; 96372; 96374; 99285-25; C9803-CS; G0378; J1447; P9058; Q5106; U0003; U0005

== ENCOUNTER 2021-08-07 04:25 | Day surgery (SDC) | payer OTHER, MEDICARE ==
[2021-08-05 15:33] VITALS: BMI 25.8
[2021-08-07] MEDS ORDERED: PROPOFOL 20 ML ONE ×2 (10:53)
[2021-08-07] MEDS ORDERED: METOPROLOL TARTRATE 50 MG TABLET (FP) PO ONE (11:24)
[2021-08-07] MEDS ORDERED: ceFAZolin SODIUM 1 GM VIAL IVPB ONE (14:02)
[2021-08-07] MEDS ORDERED: DEXTROSE 5%-WATER - 50 ML IVPB ONE (17:36)
[2021-08-07] MEDS ORDERED: ceFAZolin SODIUM 1 GM VIAL ONE (17:36)
[2021-08-07] MEDS: CEFAZOLIN 1 GM in DEXTROSE 5%-WATER - 50 ML IVPB SCH (18:50)
[2021-08-07] MEDS ORDERED: DEXAMETHASONE INJECTION 4 MG in SODIUM CHLORIDE 50 ML IVPB ONE (19:00)
[2021-08-07] MEDS ORDERED: ACETAMINOPHEN 325 MG TABLET (FP) PO ONE (19:00)
[2021-08-07] MEDS ORDERED: oxyCODONE HCL 5 MG TABLET PO PRN (19:03)
[2021-08-07] MEDS ORDERED: ACETAMINOPHEN 325 MG TABLET (FP) PO PRN (19:04)
[2021-08-07] MEDS ORDERED: DEXAMETHASONE SOD PHOSPHATE 4 MG/1 ML VIAL ONE (19:59)
[2021-08-07] MEDS ORDERED: SODIUM CHLORIDE 50 ML IVPB ONE (19:59)
[2021-08-07] MEDS: OXYBUTYNIN CHLORIDE 5 MG TABLET PO SCH (22:41)
[2021-08-07] MEDS ORDERED: FUROSEMIDE 20 MG TABLET (FP) PO ONE (23:55)
[2021-08-08] MEDS ORDERED: DEXTROSE 5%-WATER - 50 ML IVPB ONE ×2 (01:36→09:13)
[2021-08-08] MEDS ORDERED: ceFAZolin SODIUM 1 GM VIAL ONE ×2 (01:36→09:13)
[2021-08-08] MEDS: CEFAZOLIN 1 GM in DEXTROSE 5%-WATER - 50 ML IVPB SCH ×2 (03:50→09:16)
[2021-08-08 08:09] LABS: HEMATOCRIT 28.6 % (35.4-49); HEMOGLOBIN 9.6 GM/dL (11.7-16.9); MCH 31.6 pg (25.7-33.7); MCHC 33.7 g/dl (32.0-35.9); MEAN CELL VOLUME 93.8 fl (80-96); MEAN PLT VOLUME 10.4 fl (7.5-11.1); PLATELET COUNT 128 10^3/uL (134-434); RBC 3.05 M/mm3 (4.00-5.60); RDW 21.3 % (11.9-15.9); WHITE BLOOD COUNT 14.7 K/mm3 (4.0-10.0)
[2021-08-08] MEDS ORDERED: TAMSULOSIN HCL 0.4 MG CAP PO SCH (08:30)
[2021-08-08 08:34] LABS: BLOOD UREA NITROGEN 46.8 mg/dL (7-18); CALCIUM 8.7 mg/dL (8.5-10.1)
[2021-08-08 08:38] LABS: CREATININE 1.6 mg/dL (0.55-1.3)
[2021-08-08] MEDS: OXYBUTYNIN CHLORIDE 5 MG TABLET PO SCH (09:15)
[2021-08-08] MEDS ORDERED: METOPROLOL TARTRATE 50 MG TABLET (FP) PO SCH (10:00)
[2021-08-08] MEDS ORDERED: POLYETHYLENE GLYCOL (HEALTHYLAX) 3350 17 GM PACKET PO SCH (10:00)
[2021-08-08] MEDS ORDERED: amLODIPine BESYLATE 5 MG TABLET (FP) PO SCH (10:00)
[2021-08-08] MEDS ORDERED: HYDROCHLOROTHIAZIDE 25 MG TABLET (FP) PO SCH (10:00)
[2021-08-08] MEDS ORDERED: FAMOTIDINE 20 MG TABLET PO SCH (10:00)
[2021-08-08 11:48] VITALS: BP 139/66; PULSE 77; TEMP 98.2
[2021-08-23 19:33] LABS: SIZE 1X1 MM; WEIGHT 10 MG
[2021-08-23 19:34] LABS: CA OXALATE MONOHYDR. 10%; URIC ACID 90%
== END 2021-08-08 14:11 | disposition home or self-care (01) ==
LOC: JASU-SURG 04:25 → JASUSAT 04:25 → J8W 17:07 → JASUSAT 08-08 14:11
PROVIDERS: ATTEND Urology
PROC: 0TC78ZZ Extirpation of Matter from Left Ureter, Via Natural or Artificial Opening Endoscopic (ICD-10-PCS; principal; 2021-08-07 12:00)
PROC: 0T778DZ Dilation of Left Ureter with Intraluminal Device, Via Natural or Artificial Opening Endoscopic (ICD-10-PCS; 2021-08-07 12:00)
PROC: 0T778ZZ Dilation of Left Ureter, Via Natural or Artificial Opening Endoscopic (ICD-10-PCS; 2021-08-07 12:00)
DX: N20.1 Calculus of ureter (principal); N13.5 Crossing vessel and stricture of ureter without hydronephrosis
CPT/HCPCS: 36415; 76000-TC-FY; 80048; 82360; 85027; 88300-TC; 94760

== ENCOUNTER 2021-08-07 08:29 | Day surgery (SDC) | payer OTHER, MEDICARE ==
[2021-08-07] MEDS ORDERED: ACETAMINOPHEN 325 MG TABLET (FP) PO ONE (09:00)
[2021-08-07] MEDS ORDERED: DEXAMETHASONE SOD PHOSPHATE 4 MG/1 ML VIAL IVPB ONE (09:00)
[2021-08-07 09:13] LABS: HEMATOCRIT 23.8 % (35.4-49); HEMOGLOBIN 7.8 GM/dL (11.7-16.9); MCH 32.3 pg (25.7-33.7); MCHC 32.7 g/dl (32.0-35.9); MEAN PLT VOLUME 12.1 fl (7.5-11.1); PLATELET COUNT 87 10^3/uL (134-434); RBC 2.41 M/mm3 (4.00-5.60); RDW 22.4 % (11.9-15.9); WHITE BLOOD COUNT 21.1 K/mm3 (4.0-10.0)
[2021-08-07 09:18] LABS: CALCIUM 9.1 mg/dL (8.5-10.1)
[2021-08-07 09:19] LABS: ALBUMIN 2.9 g/dl (3.4-5.0); BLOOD UREA NITROGEN 53.3 mg/dL (7-18); MAGNESIUM 1.9 mg/dL (1.8-2.4)
[2021-08-07 09:22] LABS: BILIRUBIN,TOTAL 0.4 mg/dL (0.2-1); CREATININE 1.7 mg/dL (0.55-1.3); TOT PROT 8.8 g/dl (6.4-8.2)
[2021-08-07] MEDS ORDERED: DEXAMETHASONE SOD PHOSPHATE 10 MG/1 ML VIAL ONE (11:28)
[2021-08-07 13:22] LABS: ANISOCYTOSIS 2+; MACROCYTOSIS 1+; OVALOCYTE 1+
[2021-08-07 15:02] VITALS: BP 122/67; PULSE 87; TEMP 98.5
== END 2021-08-07 12:55 | disposition home or self-care (01) ==
LOC: JONCBLOOD 08:29
PROVIDERS: ATTEND Internal Medicine Hematology & Oncology
PROC: 30233R1 Transfusion of Nonautologous Platelets into Peripheral Vein, Percutaneous Approach (ICD-10-PCS; principal; 2021-08-07)
DX: D46.9 Myelodysplastic syndrome, unspecified (principal); D69.6 Thrombocytopenia, unspecified
CPT/HCPCS: 36415; 36430; 36511; 80053; 83735; 85027; 86850; 86900; 86901; 86922; J1100; P9034; P9038; P9058

== ENCOUNTER 2021-10-08 07:50 | Day surgery (SDC) | payer OTHER, MEDICARE ==
[2021-10-08] MEDS ORDERED: ACETAMINOPHEN 325 MG TABLET (FP) PO ONE (10:15)
[2021-10-08] MEDS ORDERED: DEXAMETHASONE SOD PHOSPHATE 10 MG/1 ML VIAL IVPB ONE (10:15)
[2021-10-08] MEDS ORDERED: FUROSEMIDE 20 MG TABLET (FP) PO ONE (11:00)
[2021-10-08 15:19] LABS: HEMATOCRIT 27.7 % (35.4-49); MCH 32.1 pg (25.7-33.7); MCHC 32.4 g/dl (32.0-35.9); MEAN CELL VOLUME 99.1 fl (80-96); PLATELET COUNT 91 10^3/uL (134-434); RBC 2.79 M/mm3 (4.00-5.60); RDW 23.9 % (11.9-15.9); WHITE BLOOD COUNT 20.1 K/mm3 (4.0-10.0)
[2021-10-08 15:32] LABS: ADD RBC MORPHOLOGY YES
[2021-10-08 16:41] VITALS: BP 118/61; PULSE 75
[2021-10-08 16:42] VITALS: TEMP 97.9
[2021-10-08 17:23] LABS: ANISOCYTOSIS 3+; MACROCYTOSIS 1+; OVALOCYTE 2+; PLATELET ESTIMATE DECREASED
== END 2021-10-08 15:00 | disposition home or self-care (01) ==
LOC: JONCBLOOD 07:50
PROVIDERS: ATTEND Internal Medicine Hematology & Oncology
PROC: 30233H1 Transfusion of Nonautologous Whole Blood into Peripheral Vein, Percutaneous Approach (ICD-10-PCS; principal; 2021-10-08)
DX: D46.9 Myelodysplastic syndrome, unspecified (principal)
CPT/HCPCS: 36415; 36430; 85025; 86850; 86900; 86901; 86922; J1100; P9058

== ENCOUNTER 2021-11-13 07:27 | Day surgery (SDC) | payer OTHER, MEDICARE ==
[2021-11-13] MEDS ORDERED: FAMOTIDINE 20 MG TABLET PO ONE (10:00)
[2021-11-13] MEDS ORDERED: DEXAMETHASONE 4 MG TABLET (FP) PO ONE ×2 (10:00→12:00)
[2021-11-13] MEDS ORDERED: FUROSEMIDE 40 MG TABLET (FP) PO ONE (10:00)
[2021-11-13] MEDS ORDERED: ACETAMINOPHEN 325 MG TABLET (FP) PO ONE ×3 (10:00→12:00)
[2021-11-13 18:22] VITALS: BP 125/66; PULSE 77; TEMP 97.9
[2021-11-13 18:46] LABS: BASO % 0.3 % (0-2.0); HEMATOCRIT 31.1 % (35.4-49); HEMOGLOBIN 10.4 GM/dL (11.7-16.9); LYMPH % 5.1 % (8-40); MCH 33.3 pg (25.7-33.7); MCHC 33.4 g/dl (32.0-35.9); MEAN CELL VOLUME 99.7 fl (80-96); MEAN PLT VOLUME 11.9 fl (7.5-11.1); MONO % 0.8 % (3.8-10.2); NEUT % 93.8 % (42.8-82.8); RBC 3.12 M/mm3 (4.00-5.60); RDW 20.9 % (11.9-15.9); WHITE BLOOD COUNT 20.5 K/mm3 (4.0-10.0)
[2021-11-13 19:52] LABS: ANISOCYTOSIS 2+; MACROCYTOSIS 1+; OVALOCYTE 1+
[2021-11-13 19:53] LABS: PLATELET COUNT 90 10^3/uL (134-434)
== END 2021-11-13 18:30 | disposition home or self-care (01) ==
LOC: JONCBLOOD 07:27
PROVIDERS: ATTEND Internal Medicine Hematology & Oncology
PROC: 30233N1 Transfusion of Nonautologous Red Blood Cells into Peripheral Vein, Percutaneous Approach (ICD-10-PCS; principal; 2021-11-13)
DX: D46.9 Myelodysplastic syndrome, unspecified (principal)
CPT/HCPCS: 36415; 36430; 85025; 86850; 86900; 86901; 86922; P9058

== ENCOUNTER 2021-12-25 06:19 | Day surgery (SDC) | payer OTHER, MEDICARE ==
[2021-12-25] MEDS ORDERED: FUROSEMIDE 20 MG TABLET (FP) PO ONE (10:00)
[2021-12-25] MEDS ORDERED: ACETAMINOPHEN 325 MG TABLET (FP) PO ONE (10:00)
[2021-12-25] MEDS ORDERED: DEXAMETHASONE 2 MG TABLET PO ONE (10:00)
[2021-12-25 12:38] VITALS: BP 114/56; PULSE 79; RESP 18; TEMP 98.3
[2021-12-25 18:43] LABS: BASO % 0.2 % (0-2.0); HEMATOCRIT 30.5 % (35.4-49); HEMOGLOBIN 10.2 GM/dL (11.7-16.9); LYMPH % 6.2 % (8-40); MCH 32.9 pg (25.7-33.7); MCHC 33.4 g/dl (32.0-35.9); MEAN CELL VOLUME 98.6 fl (80-96); MEAN PLT VOLUME 10.1 fl (7.5-11.1); MONO % 1.2 % (3.8-10.2); NEUT % 92.4 % (42.8-82.8); RBC 3.09 M/mm3 (4.00-5.60); RDW 22.4 % (11.9-15.9); WHITE BLOOD COUNT 16.5 K/mm3 (4.0-10.0)
[2021-12-25 19:18] LABS: ANISOCYTOSIS 3+; MACROCYTOSIS 0; OVALOCYTE 1+
[2021-12-25 19:19] LABS: PLATELET COUNT 94 10^3/uL (134-434)
== END 2021-12-25 18:15 | disposition home or self-care (01) ==
LOC: JONCBLOOD 06:19
PROVIDERS: ATTEND Internal Medicine Hematology & Oncology
PROC: 30233H1 Transfusion of Nonautologous Whole Blood into Peripheral Vein, Percutaneous Approach (ICD-10-PCS; principal; 2021-12-25)
DX: D46.9 Myelodysplastic syndrome, unspecified (principal)
CPT/HCPCS: 36415; 36430; 36511; 85025; 86850; 86900; 86901; 86922; P9016; P9058

== ENCOUNTER 2022-02-19 08:18 | Day surgery (SDC) | payer OTHER, MEDICARE ==
[2022-02-19] MEDS ORDERED: diphenhydrAMINE HCL 25 MG CAPSULE (FP) PO ONE (10:00)
[2022-02-19] MEDS ORDERED: FAMOTIDINE 40 MG TABLET PO ONE (10:00)
[2022-02-19] MEDS ORDERED: ACETAMINOPHEN 325 MG TABLET (FP) PO ONE (10:00)
[2022-02-19] MEDS ORDERED: DEXAMETHASONE 4 MG, DEXAMETHASONE 2 MG PO ONE (10:00)
[2022-02-19] MEDS ORDERED: FAMOTIDINE 20 MG TABLET PO ONE (10:30)
[2022-02-19 19:11] VITALS: TEMP 98
[2022-02-19 19:13] VITALS: BP 124/60; PULSE 87; RESP 20
[2022-02-19 19:36] LABS: BASO % 0.2 % (0-2.0); HEMATOCRIT 32.9 % (35.4-49); HEMOGLOBIN 10.9 GM/dL (11.7-16.9); LYMPH % 6.6 % (8-40); MCH 33.2 pg (25.7-33.7); MCHC 33.2 g/dl (32.0-35.9); MEAN PLT VOLUME 11.6 fl (7.5-11.1); MONO % 1.3 % (3.8-10.2); NEUT % 91.9 % (42.8-82.8); RBC 3.29 M/mm3 (4.00-5.60); RDW 20.1 % (11.9-15.9); WHITE BLOOD COUNT 19.3 K/mm3 (4.0-10.0)
[2022-02-19 21:05] LABS: PLATELET COUNT 88 10^3/uL (134-434)
[2022-02-19 21:08] LABS: ANISOCYTOSIS 3+; MACROCYTOSIS 0; OVALOCYTE 1+; TEAR DROP CELLS 1+
== END 2022-02-19 19:19 | disposition home or self-care (01) ==
LOC: JONCBLOOD 08:18
PROVIDERS: ATTEND Internal Medicine Hematology & Oncology
PROC: 30233H1 Transfusion of Nonautologous Whole Blood into Peripheral Vein, Percutaneous Approach (ICD-10-PCS; principal; 2022-02-19)
DX: D46.9 Myelodysplastic syndrome, unspecified (principal)
CPT/HCPCS: 36415; 36430; 85025; 86850; 86900; 86901; 86922; P9058

== ENCOUNTER → 2022-04-02 | Day surgery (SDC) | payer OTHER, MEDICARE ==
[~2022-04-02] MED LIST: ACETAMINOPHEN 325 MG TABLET (FP) PO ONE; DEXAMETHASONE 2 MG, DEXAMETHASONE 4 MG PO ONE; FUROSEMIDE 40 MG/4 ML INJECTABLE VIAL IVPUSH ONE; diphenhydrAMINE HCL 25 MG CAPSULE (FP) PO ONE
[2022-04-02 08:47] LABS: HEMATOCRIT 25.4 % (35.4-49); HEMOGLOBIN 8.4 GM/dL (11.7-16.9); MCH 34.4 pg (25.7-33.7); MCHC 33.3 g/dl (32.0-35.9); MEAN CELL VOLUME 103.1 fl (80-96); PLATELET COUNT 60 10^3/uL (134-434); RBC 2.46 M/mm3 (4.00-5.60); RDW 21.7 % (11.9-15.9); WHITE BLOOD COUNT 17.4 K/mm3 (4.0-10.0)
[2022-04-02 09:09] LABS: ANISOCYTOSIS 0; CALCIUM 8.8 mg/dL (8.5-10.1); MACROCYTOSIS 1+; OVALOCYTE 1+
[2022-04-02 09:10] LABS: ALBUMIN 3.2 g/dl (3.4-5.0); BLOOD UREA NITROGEN 42.8 mg/dL (7-18)
[2022-04-02 09:13] LABS: CREATININE 1.6 mg/dL (0.55-1.3); URIC ACID 9.5 mg/dL (2.6-7.2)
[2022-04-02 09:15] LABS: BILIRUBIN,TOTAL 0.6 mg/dL (0.2-1); TOT PROT 7.5 g/dl (6.4-8.2)
[2022-04-02 17:03] VITALS: BP 136/71; PULSE 83; RESP 16; TEMP 97.7
[2022-04-02 17:46] LABS: HEMATOCRIT 32.9 % (35.4-49); HEMOGLOBIN 10.9 GM/dL (11.7-16.9); MCH 32.6 pg (25.7-33.7); MCHC 33.3 g/dl (32.0-35.9); MEAN CELL VOLUME 97.9 fl (80-96); MEAN PLT VOLUME 11.6 fl (7.5-11.1); PLATELET COUNT 68 10^3/uL (134-434); RBC 3.36 M/mm3 (4.00-5.60); RDW 23.1 % (11.9-15.9); WHITE BLOOD COUNT 18.2 K/mm3 (4.0-10.0)
[2022-04-02 21:48] LABS: ANISOCYTOSIS 1+; MACROCYTOSIS 0; OVALOCYTE 2+; TEAR DROP CELLS 1+
== END | disposition home or self-care (01) ==
LOC: JONCBLOOD 08:17
PROVIDERS: ATTEND Internal Medicine Hematology & Oncology
PROC: 30233H1 Transfusion of Nonautologous Whole Blood into Peripheral Vein, Percutaneous Approach (ICD-10-PCS; principal; 2022-04-02)
DX: D46.9 Myelodysplastic syndrome, unspecified (principal)
CPT/HCPCS: 36415; 36430; 80053; 84550; 85025; 86850; 86900; 86901; 86922; P9058

== ENCOUNTER 2022-05-15 09:45 | Observation (INO) | payer OTHER, MEDICARE ==
[2022-05-15 09:55] VITALS: BMI 25.8
[2022-05-15 10:51] LABS: BASO % 0.3 % (0-2.0); EOS % 1.5 % (0-4.5); HEMOGLOBIN 7.1 GM/dL (11.7-16.9); LYMPH % 23.4 % (8-40); MCH 35.3 pg (25.7-33.7); MCHC 33.7 g/dl (32.0-35.9); MEAN CELL VOLUME 104.6 fl (80-96); MEAN PLT VOLUME 10.3 fl (7.5-11.1); MONO % 6.8 % (3.8-10.2); RBC 2.01 M/mm3 (4.00-5.60); RDW 22.9 % (11.9-15.9); WHITE BLOOD COUNT 6.7 K/mm3 (4.0-10.0)
[2022-05-15 10:56] LABS: PLATELET COUNT 49 10^3/uL (134-434)
[2022-05-15 10:58] LABS: INR 1.19 (0.83-1.09); PROTHROMBIN TIME (PATIENT) 13.7 SEC (9.7-13.0)
[2022-05-15 11:00] LABS: ACTIVATED PTT 34.2 SECONDS (25.2-36.5)
[2022-05-15 11:12] LABS: MAGNESIUM 1.6 mg/dL (1.8-2.4)
[2022-05-15 11:16] LABS: PHOSPHOROUS 3.5 mg/dL (2.5-4.9)
[2022-05-15] MEDS ORDERED: DEXAMETHASONE SOD PHOSPHATE 10 MG/1 ML VIAL IVPUSH ONE (11:19)
[2022-05-15 11:28] LABS: ANISOCYTOSIS 3+; MACROCYTOSIS 2+; OVALOCYTE 2+; PLATELET ESTIMATE DECREASED; TEAR DROP CELLS 1+
[2022-05-15] MEDS ORDERED: DEXAMETHASONE SOD PHOSPHATE 10 MG/1 ML VIAL ONE (11:43)
[2022-05-15 11:53] LABS: ALBUMIN 3.1 g/dl (3.4-5.0); CALCIUM 8.5 mg/dL (8.5-10.1)
[2022-05-15 11:57] LABS: CREATININE 1.4 mg/dL (0.55-1.3)
[2022-05-15 11:58] LABS: BILIRUBIN,TOTAL 0.4 mg/dL (0.2-1)
[2022-05-15 20:34] VITALS: BP 140/75; PULSE 92; RESP 20; TEMP 98.8
[2022-05-15 21:27] LABS: BASO % 0.4 % (0-2.0); HEMATOCRIT 29.1 % (35.4-49); HEMOGLOBIN 10.2 GM/dL (11.7-16.9); LYMPH % 9.3 % (8-40); MCH 34.3 pg (25.7-33.7); MEAN CELL VOLUME 97.8 fl (80-96); MEAN PLT VOLUME 11.8 fl (7.5-11.1); MONO % 1.2 % (3.8-10.2); NEUT % 89.1 % (42.8-82.8); PLATELET COUNT 60 10^3/uL (134-434); RBC 2.97 M/mm3 (4.00-5.60); RDW 23.3 % (11.9-15.9); WHITE BLOOD COUNT 7.1 K/mm3 (4.0-10.0)
[2022-05-15] MEDS ORDERED: METOPROLOL TARTRATE 50 MG TABLET (FP) PO SCH (22:00)
[2022-05-16] MEDS ORDERED: TAMSULOSIN HCL 0.4 MG CAP PO SCH (08:30)
[2022-05-16] MEDS ORDERED: ALLOPURINOL 100 MG TABLET (FP) PO SCH (10:00)
[2022-05-16] MEDS ORDERED: ENOXAPARIN NA (PORCINE) 40 MG/0.4 ML DISP.SYRIN SQ SCH (10:00)
[2022-05-16] MEDS ORDERED: amLODIPine BESYLATE 5 MG TABLET (FP) PO SCH (10:00)
== END 2022-05-15 21:08 | disposition left against medical advice (07) ==
LOC: JER 09:45 → UNDOADMOB 11:21 → INTOOBSV 11:21 → JERBED 11:21
PROVIDERS: ADMIT Internal Medicine
PROC: 3E033GC Introduction of Other Therapeutic Substance into Peripheral Vein, Percutaneous Approach (ICD-10-PCS; principal; 2022-05-15)
PROC: 30233N1 Transfusion of Nonautologous Red Blood Cells into Peripheral Vein, Percutaneous Approach (ICD-10-PCS; 2022-05-15)
DX: D46.9 Myelodysplastic syndrome, unspecified (principal); D69.6 Thrombocytopenia, unspecified; D69.3 Immune thrombocytopenic purpura; Z95.1 Presence of aortocoronary bypass graft; Z95.5 Presence of coronary angioplasty implant and graft; Z85.46 Personal history of malignant neoplasm of prostate
CPT/HCPCS: 0241U-QW; 36415; 36430; 80053; 83735; 84100; 85025; 85610; 85730; 86850; 86900; 86901; 86922; 93005; 93010; 96374; 96375; 99285-25; G0378; J1100; P9058

== ENCOUNTER 2022-06-02 08:36 | Day surgery (SDC) | payer OTHER, MEDICARE ==
[2022-06-02] MEDS ORDERED: DEXAMETHASONE 2 MG TABLET PO ONE (10:00)
[2022-06-02] MEDS ORDERED: diphenhydrAMINE HCL 25 MG CAPSULE (FP) PO ONE (10:00)
[2022-06-02] MEDS ORDERED: ACETAMINOPHEN 325 MG TABLET (FP) PO ONE (10:00)
[2022-06-02] MEDS ORDERED: FUROSEMIDE 40 MG/4 ML INJECTABLE VIAL IVPUSH ONE (11:00)
[2022-06-02] MEDS ORDERED: FUROSEMIDE 40 MG/4 ML INJECTABLE VIAL IVPUSH SCH (11:00)
[2022-06-02] MEDS ORDERED: EPOETIN ALFA-EPBX 40,000 UNIT/ML VIAL SQ ONE (11:00)
[2022-06-02] MEDS ORDERED: TBO-FILGRASTIM 480 MCG/0.8 ML DISP.SYRIN SQ ONE (11:00)
[2022-06-02 16:29] VITALS: BP 124/63; PULSE 90; RESP 18; TEMP 98.3
== END 2022-06-02 18:08 | disposition home or self-care (01) ==
LOC: JONCBLOOD 08:36
PROVIDERS: ATTEND Internal Medicine Hematology & Oncology
PROC: 30233H1 Transfusion of Nonautologous Whole Blood into Peripheral Vein, Percutaneous Approach (ICD-10-PCS; principal; 2022-06-02)
DX: D46.9 Myelodysplastic syndrome, unspecified (principal)
CPT/HCPCS: 36430; 86850; 86900; 86901; 86922; J1447; P9058; Q5106

== ENCOUNTER 2022-09-10 08:17 | Day surgery (SDC) | payer OTHER, MEDICARE ==
[~2022-09-10 08:17] MED LIST changes: -ACETAMINOPHEN 325 MG TABLET (FP) PO ONE; +ACETAMINOPHEN 325 MG TABLET (FP) PO SCH; -DEXAMETHASONE 2 MG, DEXAMETHASONE 4 MG PO ONE; +DEXAMETHASONE 4 MG TABLET (FP) PO SCH; -FUROSEMIDE 40 MG/4 ML INJECTABLE VIAL IVPUSH ONE; -diphenhydrAMINE HCL 25 MG CAPSULE (FP) PO ONE; +diphenhydrAMINE HCL 25 MG CAPSULE (FP) PO SCH
[2022-09-10] MEDS ORDERED: FUROSEMIDE 20 MG TABLET (FP) PO SCH (08:30)
[2022-09-10 15:56] VITALS: RESP 18
[2022-09-10 17:55] VITALS: BP 127/63; PULSE 80; TEMP 98.3
[2022-09-10 18:27] LABS: BASO % 0.4 % (0-2.0); EOS % 0.1 % (0-4.5); HEMATOCRIT 30.5 % (35.4-49); HEMOGLOBIN 10.4 GM/dL (11.7-16.9); LYMPH % 6.5 % (8-40); MCHC 34.1 g/dl (32.0-35.9); MEAN CELL VOLUME 102.5 fl (80-96); MEAN PLT VOLUME 11.5 fl (7.5-11.1); MONO % 0.7 % (3.8-10.2); NEUT % 92.3 % (42.8-82.8); PLATELET COUNT 62 10^3/uL (134-434); RBC 2.98 M/mm3 (4.00-5.60); RDW 23.8 % (11.9-15.9); WHITE BLOOD COUNT 13.9 K/mm3 (4.0-10.0)
[2022-09-10 19:22] LABS: ANISOCYTOSIS 2+; MACROCYTOSIS 0
== END 2022-09-10 18:20 | disposition home or self-care (01) ==
LOC: JONCBLOOD 08:17 → J7W 08:18 → JONCBLOOD 18:20
PROVIDERS: ATTEND Internal Medicine Hematology & Oncology
PROC: 30233N1 Transfusion of Nonautologous Red Blood Cells into Peripheral Vein, Percutaneous Approach (ICD-10-PCS; principal; 2022-09-10)
DX: D46.9 Myelodysplastic syndrome, unspecified (principal); E79.0 Hyperuricemia without signs of inflammatory arthritis and tophaceous disease; E87.5 Hyperkalemia; I10 Essential (primary) hypertension
CPT/HCPCS: 36415; 36430; 85025; 86850; 86900; 86901; 86922; P9038; P9058

== ENCOUNTER 2022-10-29 08:12 | Day surgery (SDC) | payer OTHER, MEDICARE ==
[2022-10-29] MEDS ORDERED: DEXAMETHASONE 2 MG TABLET PO ONE (08:30)
[2022-10-29] MEDS ORDERED: diphenhydrAMINE HCL 25 MG CAPSULE (FP) PO ONE (08:30)
[2022-10-29] MEDS ORDERED: ACETAMINOPHEN 325 MG TABLET (FP) PO ONE (08:30)
[2022-10-29] MEDS ORDERED: FUROSEMIDE 20 MG TABLET (FP) PO ONE (12:00)
[2022-10-29 18:00] LABS: HEMATOCRIT 33.8 % (35.4-49); HEMOGLOBIN 11.4 GM/dL (11.7-16.9); MCH 32.9 pg (25.7-33.7); MCHC 33.7 g/dl (32.0-35.9); MEAN CELL VOLUME 97.7 fl (80-96); MEAN PLT VOLUME 8.9 fl (7.5-11.1); RBC 3.46 M/mm3 (4.00-5.60); RDW 28.5 % (11.9-15.9); WHITE BLOOD COUNT 14.8 K/mm3 (4.0-10.0)
[2022-10-29 18:02] VITALS: RESP 18; TEMP 98.3
[2022-10-29 18:03] VITALS: BP 116/61; PULSE 86
[2022-10-29 18:42] LABS: ANISOCYTOSIS 3+; MACROCYTOSIS 0; OVALOCYTE 2+; TEAR DROP CELLS 1+
[2022-10-29 18:43] LABS: PLATELET COUNT 42 10^3/uL (134-434)
== END 2022-10-29 18:06 | disposition home or self-care (01) ==
LOC: JONCBLOOD 08:12 → J7W 08:13 → JONCBLOOD 18:06
PROVIDERS: ATTEND Internal Medicine Hematology & Oncology
PROC: 30233N1 Transfusion of Nonautologous Red Blood Cells into Peripheral Vein, Percutaneous Approach (ICD-10-PCS; principal; 2022-10-29)
DX: D46.9 Myelodysplastic syndrome, unspecified (principal)
CPT/HCPCS: 36415; 36430; 85025; 86850; 86900; 86901; 86922; P9058

== ENCOUNTER 2022-12-23 11:56 | Day surgery (SDC) | payer OTHER, MEDICARE ==
[~2022-12-23 11:56] MED LIST changes: -ACETAMINOPHEN 325 MG TABLET (FP) PO SCH; -DEXAMETHASONE 4 MG TABLET (FP) PO SCH; +EPOETIN ALFA-EPBX 20,000 UNIT/ML VIAL SQ ONE; +TBO-FILGRASTIM 480 MCG/0.8 ML DISP.SYRIN SQ ONE; -diphenhydrAMINE HCL 25 MG CAPSULE (FP) PO SCH
[2022-12-23 16:46] VITALS: BP 115/54; PULSE 77; RESP 18; TEMP 98.1
== END 2022-12-23 12:40 | disposition home or self-care (01) ==
LOC: JONCCHEMO 11:56 → J7W 11:57 → JONCCHEMO 12:40
PROVIDERS: ATTEND Internal Medicine Hematology & Oncology
DX: D46.9 Myelodysplastic syndrome, unspecified (principal)
CPT/HCPCS: 96372; J1447

== ENCOUNTER 2022-12-31 08:19 | Day surgery (SDC) | payer OTHER, MEDICARE ==
[2022-12-31] MEDS ORDERED: diphenhydrAMINE HCL 25 MG CAPSULE (FP) PO ONE (10:30)
[2022-12-31] MEDS ORDERED: DEXAMETHASONE 6 MG TABLET PO ONE (10:30)
[2022-12-31] MEDS ORDERED: DEXAMETHASONE 4 MG, DEXAMETHASONE 2 MG PO ONE (10:30)
[2022-12-31] MEDS ORDERED: ACETAMINOPHEN 325 MG TABLET (FP) PO ONE (10:30)
[2022-12-31] MEDS ORDERED: FUROSEMIDE 20 MG TABLET (FP) PO ONE ×2 (12:00→14:15)
[2022-12-31 18:00] VITALS: BP 104/57; PULSE 84; RESP 16; TEMP 97.9
[2022-12-31 19:31] LABS: BASO % 0.4 % (0-2.0); EOS % 0.2 % (0-4.5); HEMOGLOBIN 10.8 GM/dL (11.7-16.9); LYMPH % 6.7 % (8-40); MCH 35.2 pg (25.7-33.7); MCHC 34.9 g/dl (32.0-35.9); MEAN CELL VOLUME 100.9 fl (80-96); MEAN PLT VOLUME 11.3 fl (7.5-11.1); NEUT % 91.7 % (42.8-82.8); PLATELET COUNT 78 10^3/uL (134-434); RBC 3.07 M/mm3 (4.00-5.60); RDW 27.1 % (11.9-15.9); WHITE BLOOD COUNT 10.4 K/mm3 (4.0-10.0)
[2022-12-31 20:07] LABS: ANISOCYTOSIS 2+; MACROCYTOSIS 0
== END 2022-12-31 19:08 | disposition home or self-care (01) ==
LOC: JONCBLOOD 08:19 → J7W 08:20 → JONCBLOOD 18:39 → J7W 18:39 → JONCBLOOD 19:08
PROVIDERS: ATTEND Internal Medicine Hematology & Oncology
PROC: 30233N1 Transfusion of Nonautologous Red Blood Cells into Peripheral Vein, Percutaneous Approach (ICD-10-PCS; principal; 2022-12-31)
DX: D46.9 Myelodysplastic syndrome, unspecified (principal)
CPT/HCPCS: 36415; 36430; 85025; 86850; 86900; 86901; 86922; P9058

== ENCOUNTER 2023-02-03 13:31 | Day surgery (SDC) | payer OTHER, MEDICARE ==
[~2023-02-03 13:31] MED LIST changes: +EPOETIN ALFA-EPBX 20,000 UNIT, EPOETIN ALFA-EPBX 40,000 UNIT SQ ONE; -EPOETIN ALFA-EPBX 20,000 UNIT/ML VIAL SQ ONE
[2023-02-03 14:43] VITALS: BP 126/62; PULSE 90; RESP 20; TEMP 98.3
== END 2023-02-03 14:10 | disposition home or self-care (01) ==
LOC: JONCNONCHE 13:31 → J7W 13:39 → JONCNONCHE 14:10
PROVIDERS: ATTEND Internal Medicine Hematology & Oncology
PROC: 3E013GC Introduction of Other Therapeutic Substance into Subcutaneous Tissue, Percutaneous Approach (ICD-10-PCS; principal; 2023-02-03)
DX: D46.9 Myelodysplastic syndrome, unspecified (principal); Z76.89 Persons encountering health services in other specified circumstances
CPT/HCPCS: 96372; J1447; Q5106

== ENCOUNTER 2023-03-04 07:03 | Observation (INO) | payer OTHER, MEDICARE ==
[2023-03-04 07:09] VITALS: BMI 25.8
[2023-03-04] MEDS ORDERED: LIDOCAINE HCL 2% JELLY 6 ML TP ONE (08:49)
[2023-03-04 10:10] LABS: INR 1.23 (0.83-1.09); PROTHROMBIN TIME (PATIENT) 14.2 SEC (9.7-13.0)
[2023-03-04 10:13] LABS: ACTIVATED PTT 33.8 SECONDS (25.2-36.5)
[2023-03-04 10:15] LABS: HEMOGLOBIN 8.5 GM/dL (11.7-16.9); MCH 33.9 pg (25.7-33.7); MCHC 32.9 g/dl (32.0-35.9); MEAN CELL VOLUME 103.2 fl (80-96); RBC 2.52 M/mm3 (4.00-5.60); RDW 25.8 % (11.9-15.9); WHITE BLOOD COUNT 15.9 K/mm3 (4.0-10.0)
[2023-03-04 10:21] LABS: POTASSIUM 5.4 mmol/L (3.5-5.1)
[2023-03-04 10:22] LABS: BLOOD UREA NITROGEN 69.4 mg/dL (7-18)
[2023-03-04 10:27] LABS: TOT PROT 8.2 g/dl (6.4-8.2)
[2023-03-04 10:40] LABS: BILIRUBIN,TOTAL 0.7 mg/dL (0.2-1)
[2023-03-04] MEDS ORDERED: SODIUM CHLORIDE 0.9% 1000 ML INFUS.BAG IV ONE (10:55)
[2023-03-04 11:17] LABS: EPI CELLS 0 /uL (0-25.1); HYALINE CASTS 0 /uL (0-3.1); PH,URINE 5.5 (5.0-8.0); URINE APPEARANCE TURBID; URINE BACTERIA >9,000 /uL (0-1359); URINE BILIRUBIN NEGATIVE (NEGATIVE); URINE COLOR YELLOW; URINE GLUCOSE (UA) NEGATIVE (NEGATIVE); URINE KETONE NEGATIVE (NEGATIVE); URINE LEUK ESTERASE 3+ (NEGATIVE); URINE NITRITE POSITIVE (NEGATIVE); URINE PROTEIN 3+ (NEGATIVE); URINE RBC 101 /uL (0-23.9); URINE UROBILINOGEN 0.2 mg/dL (0.2-1.0); URINE WBC 4615 /uL (0-25.8)
[2023-03-04] MEDS ORDERED: CEFTRIAXONE 1 GM in DEXTROSE 5%-WATER - 100 ML IVPB ONE (11:54)
[2023-03-04] MEDS ORDERED: CEFTRIAXONE 1 GM/50 ML BAG ONE (12:07)
[2023-03-04] MEDS ORDERED: SODIUM CHLORIDE 1,000 ML IV SCH (14:30)
[2023-03-04] MEDS: METOPROLOL TARTRATE 50 MG TABLET (FP) PO SCH (21:24)
[2023-03-04] MEDS: TAMSULOSIN HCL 0.4 MG CAP PO SCH (21:24)
[2023-03-04] MEDS ORDERED: ALBUTEROL SO4 0.083% IH SOL 2.5 MG/3 ML VIAL.NEB. NEB ONE (21:29)
[2023-03-04] MEDS: SODIUM ZIRCONIUM CYCLOSILICATE (LOKELMA) 5 GM PACKET PO SCH (22:07)
[2023-03-05] MEDS: METOPROLOL TARTRATE 50 MG TABLET (FP) PO SCH ×3 (05:46→22:53)
[2023-03-05] MEDS: CEFTRIAXONE 1 GM in DEXTROSE 5%-WATER - 50 ML IVPB SCH (09:26)
[2023-03-05] MEDS: SODIUM ZIRCONIUM CYCLOSILICATE (LOKELMA) 5 GM PACKET PO SCH (09:27)
[2023-03-05] MEDS: FEBUXOSTAT 40 MG TAB PO SCH (09:27)
[2023-03-05] MEDS: FAMOTIDINE 20 MG TABLET PO SCH (09:27)
[2023-03-05 09:48] LABS: BASO % 0.4 % (0-2.0); EOS % 0.4 % (0-4.5); HEMATOCRIT 24.7 % (35.4-49); HEMOGLOBIN 8.1 GM/dL (11.7-16.9); LYMPH % 15.6 % (8-40); MCH 33.9 pg (25.7-33.7); MCHC 32.8 g/dl (32.0-35.9); MEAN CELL VOLUME 103.4 fl (80-96); MONO % 9.3 % (3.8-10.2); NEUT % 74.3 % (42.8-82.8); RBC 2.39 M/mm3 (4.00-5.60); RDW 25.3 % (11.9-15.9); WHITE BLOOD COUNT 8.6 K/mm3 (4.0-10.0)
[2023-03-05 10:17] LABS: POTASSIUM 5.1 mmol/L (3.5-5.1)
[2023-03-05 10:24] LABS: ANISOCYTOSIS 2+; MACROCYTOSIS 0; OVALOCYTE 1+; TEAR DROP CELLS 1+
[2023-03-05 10:25] LABS: MEAN PLT VOLUME 10.2 fl (7.5-11.1); PLATELET COUNT 60 10^3/uL (134-434)
[2023-03-05 10:29] LABS: CALCIUM 8.4 mg/dL (8.5-10.1)
[2023-03-05 10:30] LABS: ALBUMIN 2.6 g/dl (3.4-5.0); BLOOD UREA NITROGEN 46.2 mg/dL (7-18); MAGNESIUM 1.9 mg/dL (1.8-2.4)
[2023-03-05 10:33] LABS: CREATININE 1.8 mg/dL (0.55-1.3); PHOSPHOROUS 3.6 mg/dL (2.5-4.9)
[2023-03-05 10:34] LABS: TOT PROT 7.6 g/dl (6.4-8.2)
[2023-03-05 10:35] LABS: BILIRUBIN,TOTAL 0.9 mg/dL (0.2-1)
[2023-03-05] MEDS ORDERED: ONDANSETRON 4 MG/2 ML VIAL IVPUSH PRN (14:06)
[2023-03-05] MEDS: HEPARIN NA (PORCINE) 5,000 UNITS/ML 1ML VIAL SQ SCH (22:54)
[2023-03-05] MEDS: TAMSULOSIN HCL 0.4 MG CAP PO SCH (22:54)
[2023-03-06] MEDS: METOPROLOL TARTRATE 50 MG TABLET (FP) PO SCH ×3 (05:20→21:22)
[2023-03-06] MEDS: LACTOBACILLUS ACIDOPHILUS 1 TABLET PO SCH (09:05)
[2023-03-06] MEDS: CEFTRIAXONE 1 GM in DEXTROSE 5%-WATER - 50 ML IVPB SCH (09:05)
[2023-03-06] MEDS: HEPARIN NA (PORCINE) 5,000 UNITS/ML 1ML VIAL SQ SCH ×2 (09:05→21:22)
[2023-03-06] MEDS: FAMOTIDINE 20 MG TABLET PO SCH (09:05)
[2023-03-06] MEDS: FEBUXOSTAT 40 MG TAB PO SCH (09:08)
[2023-03-06 09:17] LABS: BASO % 0.4 % (0-2.0); EOS % 0.7 % (0-4.5); HEMATOCRIT 21.6 % (35.4-49); HEMOGLOBIN 7.4 GM/dL (11.7-16.9); LYMPH % 25.7 % (8-40); MCH 34.7 pg (25.7-33.7); MCHC 34.1 g/dl (32.0-35.9); MEAN CELL VOLUME 101.6 fl (80-96); MONO % 9.5 % (3.8-10.2); NEUT % 63.7 % (42.8-82.8); RBC 2.13 M/mm3 (4.00-5.60); RDW 24.9 % (11.9-15.9)
[2023-03-06 09:18] LABS: MEAN PLT VOLUME 10.2 fl (7.5-11.1)
[2023-03-06 09:19] LABS: POTASSIUM 4.7 mmol/L (3.5-5.1); WHITE BLOOD COUNT 6.1 K/mm3 (4.0-10.0)
[2023-03-06 09:24] LABS: BLOOD UREA NITROGEN 42.6 mg/dL (7-18)
[2023-03-06 09:27] LABS: CALCIUM 8.1 mg/dL (8.5-10.1); PHOSPHOROUS 3.7 mg/dL (2.5-4.9)
[2023-03-06 09:28] LABS: CREATININE 1.7 mg/dL (0.55-1.3)
[2023-03-06] MEDS ORDERED: SODIUM CHLORIDE 1,000 ML IV SCH (09:30)
[2023-03-06] MEDS: ACETAMINOPHEN 500 MG TABLET (FP) PO PRN ×2 (11:37→20:38)
[2023-03-06 16:18] LABS: POTASSIUM 4.6 mmol/L (3.5-5.1)
[2023-03-06 16:20] LABS: BLOOD UREA NITROGEN 43.5 mg/dL (7-18)
[2023-03-06 16:23] LABS: CREATININE 1.9 mg/dL (0.55-1.3)
[2023-03-06 16:39] LABS: HEMATOCRIT 21.5 % (35.4-49); HEMOGLOBIN 7.1 GM/dL (11.7-16.9); MCH 33.9 pg (25.7-33.7); MCHC 33.2 g/dl (32.0-35.9); RBC 2.11 M/mm3 (4.00-5.60); RDW 24.8 % (11.9-15.9); WHITE BLOOD COUNT 4.9 K/mm3 (4.0-10.0)
[2023-03-06 17:32] LABS: ANISOCYTOSIS 3+; MACROCYTOSIS 1+; OVALOCYTE 1+; TEAR DROP CELLS 1+
[2023-03-06] MEDS: TAMSULOSIN HCL 0.4 MG CAP PO SCH (21:22)
[2023-03-06 23:22] VITALS: RESP 20
[2023-03-07] MEDS: METOPROLOL TARTRATE 50 MG TABLET (FP) PO SCH ×2 (05:28→14:13)
[2023-03-07 09:43] LABS: HEMATOCRIT 24.8 % (35.4-49); HEMOGLOBIN 8.3 GM/dL (11.7-16.9); MCH 33.4 pg (25.7-33.7); MCHC 33.7 g/dl (32.0-35.9); MEAN CELL VOLUME 99.1 fl (80-96); RDW 26.4 % (11.9-15.9)
[2023-03-07 09:56] LABS: WHITE BLOOD COUNT 4.5 K/mm3 (4.0-10.0)
[2023-03-07] MEDS ORDERED: CEFUROXIME AXETIL 250 MG TABLET PO SCH (10:00)
[2023-03-07 10:06] LABS: POTASSIUM 4.6 mmol/L (3.5-5.1)
[2023-03-07] MEDS: LACTOBACILLUS ACIDOPHILUS 1 TABLET PO SCH (10:07)
[2023-03-07] MEDS: FAMOTIDINE 20 MG TABLET PO SCH (10:07)
[2023-03-07] MEDS: HEPARIN NA (PORCINE) 5,000 UNITS/ML 1ML VIAL SQ SCH (10:07)
[2023-03-07] MEDS: FEBUXOSTAT 40 MG TAB PO SCH (10:07)
[2023-03-07 10:08] LABS: BLOOD UREA NITROGEN 42.8 mg/dL (7-18)
[2023-03-07 10:10] LABS: PHOSPHOROUS 3.6 mg/dL (2.5-4.9)
[2023-03-07 10:11] LABS: CREATININE 1.7 mg/dL (0.55-1.3)
[2023-03-07 10:28] LABS: ANISOCYTOSIS 1+; MACROCYTOSIS 1+
[2023-03-07 10:37] LABS: PLATELET ESTIMATE DECREASED
[2023-03-07 13:54] VITALS: BP 129/59; PULSE 84; TEMP 98.1
[2023-03-07] MEDS ORDERED: LACTATED RINGERS SOLUTION 1000 ML INFUS.BAG IV ONE (15:50)
== END 2023-03-07 16:45 | disposition home health service (06) ==
LOC: JER 07:03 → JERBED 12:27 → J5S 19:56
PROVIDERS: ADMIT Internal Medicine; ATTEND Internal Medicine
PROC: 0T9B70Z Drainage of Bladder with Drainage Device, Via Natural or Artificial Opening (ICD-10-PCS; principal; 2023-03-04)
PROC: 3E0F7GC Introduction of Other Therapeutic Substance into Respiratory Tract, Via Natural or Artificial Opening (ICD-10-PCS; 2023-03-04)
PROC: 3E03329 Introduction of Other Anti-infective into Peripheral Vein, Percutaneous Approach (ICD-10-PCS; 2023-03-04)
PROC: 3E033GC Introduction of Other Therapeutic Substance into Peripheral Vein, Percutaneous Approach (ICD-10-PCS; 2023-03-04)
PROC: 3E0337Z Introduction of Electrolytic and Water Balance Substance into Peripheral Vein, Percutaneous Approach (ICD-10-PCS; 2023-03-04)
DX: A41.9 Sepsis, unspecified organism (principal); N39.0 Urinary tract infection, site not specified; R33.9 Retention of urine, unspecified; C61 Malignant neoplasm of prostate; N13.30 Unspecified hydronephrosis; D69.6 Thrombocytopenia, unspecified; N18.9 Chronic kidney disease, unspecified
CPT/HCPCS: 36415; 36430; 51702; 71045-TC-FY; 76775-TC; 76856-TC; 80048; 80053; 81003; 82570; 83735; 83935; 84100; 84300; 85025; 85027; 85610; 85730; 86850; 86900; 86901; 86922; 87086; 87186; 93005; 93010; 94640; 96361; 96365; 96366; 96375; 97116-GP; 99285-25; G0378; J1644; P9058

== ENCOUNTER 2023-03-17 08:36 | Day surgery (SDC) | payer OTHER, MEDICARE ==
[~2023-03-17 08:36] MED LIST changes: +EPOETIN ALFA EPBX SQ ONE; -EPOETIN ALFA-EPBX 20,000 UNIT, EPOETIN ALFA-EPBX 40,000 UNIT SQ ONE
[2023-03-17] MEDS ORDERED: diphenhydrAMINE HCL 25 MG CAPSULE (FP) PO ONE (09:00)
[2023-03-17] MEDS ORDERED: ACETAMINOPHEN 325 MG TABLET (FP) PO ONE (09:00)
[2023-03-17] MEDS ORDERED: DEXAMETHASONE 2 MG, DEXAMETHASONE 4 MG PO ONE (09:00)
[2023-03-17] MEDS ORDERED: FUROSEMIDE 20 MG TABLET (FP) PO ONE (12:00)
[2023-03-17 17:43] VITALS: BP 114/66; PULSE 86; RESP 18; TEMP 97.3
[2023-03-17 18:00] LABS: HEMATOCRIT 30.1 % (35.4-49); MCH 32.9 pg (25.7-33.7); MCHC 33.4 g/dl (32.0-35.9); MEAN CELL VOLUME 98.5 fl (80-96); RBC 3.05 M/mm3 (4.00-5.60); RDW 24.8 % (11.9-15.9); WHITE BLOOD COUNT 10.8 K/mm3 (4.0-10.0)
[2023-03-17 18:41] LABS: ANISOCYTOSIS 2+; MACROCYTOSIS 1+; OVALOCYTE 1+; TEAR DROP CELLS 1+
== END 2023-03-17 18:54 | disposition home or self-care (01) ==
LOC: JONCBLOOD 08:36 → J7W 08:37 → JONCBLOOD 18:54
PROVIDERS: ATTEND Internal Medicine Hematology & Oncology
PROC: 30233N1 Transfusion of Nonautologous Red Blood Cells into Peripheral Vein, Percutaneous Approach (ICD-10-PCS; principal; 2023-03-17)
DX: D46.9 Myelodysplastic syndrome, unspecified (principal)
CPT/HCPCS: 36415; 36430; 85025; 86850; 86900; 86901; 86922; P9058

== ENCOUNTER 2023-04-08 08:18 | Day surgery (SDC) | payer OTHER, MEDICARE ==
[2023-04-08] MEDS ORDERED: diphenhydrAMINE HCL 25 MG CAPSULE (FP) PO SCH (09:00)
[2023-04-08] MEDS ORDERED: DEXAMETHASONE 4 MG TABLET (FP) PO SCH (09:00)
[2023-04-08] MEDS ORDERED: FUROSEMIDE 20 MG TABLET (FP) PO SCH (09:00)
[2023-04-08] MEDS ORDERED: ACETAMINOPHEN 325 MG TABLET (FP) PO SCH (09:00)
[2023-04-08 16:31] VITALS: PULSE 83; RESP 20
[2023-04-08 18:43] VITALS: BP 126/70
[2023-04-08 18:47] VITALS: TEMP 97.4
[2023-04-08 19:11] LABS: BASO % 0.2 % (0-2.0); EOS % 0.1 % (0-4.5); HEMATOCRIT 32.7 % (35.4-49); MCH 32.7 pg (25.7-33.7); MCHC 33.5 g/dl (32.0-35.9); MEAN CELL VOLUME 97.7 fl (80-96); MONO % 0.9 % (3.8-10.2); NEUT % 91.8 % (42.8-82.8); RBC 3.35 M/mm3 (4.00-5.60); RDW 24.2 % (11.9-15.9); WHITE BLOOD COUNT 13.6 K/mm3 (4.0-10.0)
[2023-04-08 20:21] LABS: ANISOCYTOSIS 2+; MACROCYTOSIS 1+; OVALOCYTE 1+; TOXIC GRANULATION 1+
[2023-04-08 20:22] LABS: PLATELET ESTIMATE SLT DECREASE
== END 2023-04-08 19:27 | disposition home or self-care (01) ==
LOC: JONCBLOOD 08:18 → J7W 08:19 → JONCBLOOD 19:27
PROVIDERS: ATTEND Internal Medicine Hematology & Oncology
PROC: 30233N1 Transfusion of Nonautologous Red Blood Cells into Peripheral Vein, Percutaneous Approach (ICD-10-PCS; principal; 2023-04-08)
DX: D46.9 Myelodysplastic syndrome, unspecified (principal)
CPT/HCPCS: 36415; 36430; 85025; 86850; 86900; 86901; 86922; P9038; P9058

== ENCOUNTER 2023-04-15 09:51 | Day surgery (SDC) | payer OTHER, MEDICARE ==
[2023-04-15] MEDS ORDERED: EPOETIN ALFA-EPBX 20,000 UNIT/ML VIAL SQ ONE (10:00)
[2023-04-15] MEDS ORDERED: SODIUM CHLORIDE 0.45% 1,000 ML IV ONE (10:00)
[2023-04-15] MEDS ORDERED: TBO-FILGRASTIM 480 MCG/0.8 ML DISP.SYRIN SQ ONE (10:00)
[2023-04-15] MEDS ORDERED: EPOETIN ALFA EPBX SQ ONE (10:00)
[2023-04-15 16:03] VITALS: TEMP 97.7
[2023-04-15 16:20] VITALS: BP 103/55; PULSE 87; RESP 16
== END 2023-04-15 14:30 | disposition home or self-care (01) ==
LOC: JONCCHEMO 09:51 → J7W 09:52 → JONCCHEMO 14:30
PROVIDERS: ATTEND Internal Medicine Hematology & Oncology
PROC: 3E013GC Introduction of Other Therapeutic Substance into Subcutaneous Tissue, Percutaneous Approach (ICD-10-PCS; principal; 2023-04-15)
PROC: 3E013GC Introduction of Other Therapeutic Substance into Subcutaneous Tissue, Percutaneous Approach (ICD-10-PCS; 2023-04-15)
PROC: 3E0337Z Introduction of Electrolytic and Water Balance Substance into Peripheral Vein, Percutaneous Approach (ICD-10-PCS; 2023-04-15)
DX: D46.9 Myelodysplastic syndrome, unspecified (principal)
CPT/HCPCS: 96360; 96361; 96372; J1447; Q5106

== ENCOUNTER 2023-04-27 08:17 | Day surgery (SDC) | payer OTHER, MEDICARE ==
[2023-04-27] MEDS ORDERED: ACETAMINOPHEN 325 MG TABLET (FP) PO ONE (09:00)
[2023-04-27] MEDS ORDERED: DEXAMETHASONE 4 MG TABLET (FP) PO ONE (09:00)
[2023-04-27] MEDS ORDERED: diphenhydrAMINE HCL 25 MG CAPSULE (FP) PO ONE (09:00)
[2023-04-27 09:22] LABS: BASO % 0.4 % (0-2.0); EOS % 3.1 % (0-4.5); HEMATOCRIT 26.4 % (35.4-49); HEMOGLOBIN 8.6 GM/dL (11.7-16.9); LYMPH % 44.4 % (8-40); MCH 33.2 pg (25.7-33.7); MCHC 32.7 g/dl (32.0-35.9); MEAN CELL VOLUME 101.6 fl (80-96); MEAN PLT VOLUME 9.9 fl (7.5-11.1); MONO % 12.5 % (3.8-10.2); NEUT % 39.6 % (42.8-82.8); PLATELET COUNT 62 10^3/uL (134-434); RDW 23.6 % (11.9-15.9); WHITE BLOOD COUNT 3.3 K/mm3 (4.0-10.0)
[2023-04-27] MEDS ORDERED: EPOETIN ALFA EPBX SQ ONE (10:00)
[2023-04-27] MEDS ORDERED: TBO-FILGRASTIM 480 MCG/0.8 ML DISP.SYRIN SQ ONE (10:00)
[2023-04-27 10:34] LABS: POTASSIUM 5.4 mmol/L (3.5-5.1)
[2023-04-27 10:37] LABS: BLOOD UREA NITROGEN 57.1 mg/dL (7-18); CALCIUM 8.9 mg/dL (8.5-10.1); MAGNESIUM 1.8 mg/dL (1.8-2.4)
[2023-04-27 10:39] LABS: URIC ACID 7.6 mg/dL (2.6-7.2)
[2023-04-27 10:40] LABS: CREATININE 1.6 mg/dL (0.55-1.3)
[2023-04-27 10:41] LABS: BILIRUBIN,TOTAL 0.8 mg/dL (0.2-1)
[2023-04-27 10:42] LABS: TOT PROT 8.4 g/dl (6.4-8.2)
[2023-04-27] MEDS ORDERED: FUROSEMIDE 20 MG TABLET (FP) PO ONE (11:00)
[2023-04-27 13:07] LABS: ANISOCYTOSIS 2+
[2023-04-27 19:00] LABS: HEMATOCRIT 30.9 % (35.4-49); HEMOGLOBIN 10.3 GM/dL (11.7-16.9); MCHC 33.1 g/dl (32.0-35.9); MEAN CELL VOLUME 96.6 fl (80-96); MEAN PLT VOLUME 9.9 fl (7.5-11.1); PLATELET COUNT 64 10^3/uL (134-434); RDW 21.8 % (11.9-15.9)
[2023-04-27 19:13] LABS: WHITE BLOOD COUNT 1.7 K/mm3 (4.0-10.0)
[2023-04-28 07:55] VITALS: BP 120/66; PULSE 82; RESP 18; TEMP 97.6
== END 2023-04-27 18:30 | disposition home or self-care (01) ==
LOC: JONCCHEMO 08:17 → J7W 08:42 → JONCCHEMO 18:30
PROVIDERS: ATTEND Internal Medicine Hematology & Oncology
PROC: 30233N1 Transfusion of Nonautologous Red Blood Cells into Peripheral Vein, Percutaneous Approach (ICD-10-PCS; principal; 2023-04-27)
PROC: 3E013GC Introduction of Other Therapeutic Substance into Subcutaneous Tissue, Percutaneous Approach (ICD-10-PCS; 2023-04-27)
PROC: 3E013GC Introduction of Other Therapeutic Substance into Subcutaneous Tissue, Percutaneous Approach (ICD-10-PCS; 2023-04-27)
DX: D46.9 Myelodysplastic syndrome, unspecified (principal)
CPT/HCPCS: 36415; 36430; 80053; 83615; 83735; 84550; 85025; 85027; 86850; 86900; 86901; 86922; 96372; J1447; P9058; Q5106

== ENCOUNTER 2023-06-03 08:35 | Day surgery (SDC) | payer OTHER, MEDICARE ==
[2023-06-03] MEDS ORDERED: diphenhydrAMINE HCL 25 MG CAPSULE (FP) PO ONE (10:00)
[2023-06-03] MEDS ORDERED: DEXAMETHASONE 6 MG TABLET PO ONE (10:00)
[2023-06-03] MEDS ORDERED: DEXAMETHASONE 4 MG, DEXAMETHASONE 2 MG PO ONE (10:00)
[2023-06-03] MEDS ORDERED: ACETAMINOPHEN 325 MG TABLET (FP) PO ONE (10:00)
[2023-06-03] MEDS ORDERED: FUROSEMIDE 20 MG TABLET (FP) PO ONE (12:00)
[2023-06-03 12:57] VITALS: RESP 18
[2023-06-03 18:26] VITALS: BP 119/63; PULSE 79; TEMP 97.5
[2023-06-03 19:12] LABS: BASO % 0.1 % (0-2.0); HEMATOCRIT 30.6 % (35.4-49); HEMOGLOBIN 9.9 GM/dL (11.7-16.9); LYMPH % 5.4 % (8-40); MCH 30.9 pg (25.7-33.7); MCHC 32.4 g/dl (32.0-35.9); MEAN CELL VOLUME 95.3 fl (80-96); MEAN PLT VOLUME 10.5 fl (7.5-11.1); MONO % 0.9 % (3.8-10.2); NEUT % 93.6 % (42.8-82.8); RBC 3.21 M/mm3 (4.00-5.60); RDW 25.1 % (11.9-15.9); WHITE BLOOD COUNT 13.2 K/mm3 (4.0-10.0)
[2023-06-03 20:00] LABS: ANISOCYTOSIS 1+; MACROCYTOSIS 0; PLATELET ESTIMATE DECREASED
== END 2023-06-03 19:12 | disposition home or self-care (01) ==
LOC: JONCBLOOD 08:35 → J7W 08:36 → JONCBLOOD 19:12
PROVIDERS: ATTEND Internal Medicine Hematology & Oncology
PROC: 30233N1 Transfusion of Nonautologous Red Blood Cells into Peripheral Vein, Percutaneous Approach (ICD-10-PCS; principal; 2023-06-03)
DX: D46.9 Myelodysplastic syndrome, unspecified (principal)
CPT/HCPCS: 36415; 36430; 85025; 86850; 86900; 86901; 86922; P9058

== ENCOUNTER 2023-07-08 10:02 | Day surgery (SDC) | payer OTHER, MEDICARE ==
[2023-07-08] MEDS: DEXAMETHASONE SODIUM PHOSPHATE 6 MG, ONDANSETRON INJECTION 8 MG in SODIUM CHLORIDE 100 ML IVPB ONE (10:42)
[2023-07-08] MEDS: SODIUM CHLORIDE 0.45% 500 ML IV ONE (10:42)
[2023-07-08 17:41] VITALS: RESP 16; TEMP 97.6
[2023-07-08 17:44] VITALS: BP 102/53; PULSE 85
== END 2023-07-08 13:00 | disposition home or self-care (01) ==
LOC: JONCNONCHE 10:02 → J7W 10:03 → JONCNONCHE 13:00
PROVIDERS: ATTEND Internal Medicine Hematology & Oncology
PROC: 3E033GC Introduction of Other Therapeutic Substance into Peripheral Vein, Percutaneous Approach (ICD-10-PCS; principal; 2023-07-08)
DX: D46.9 Myelodysplastic syndrome, unspecified (principal); Z76.89 Persons encountering health services in other specified circumstances
CPT/HCPCS: 96365; J2405

== ENCOUNTER 2023-07-20 17:14 | Inpatient (IN) | payer OTHER, MEDICARE ==
[2023-07-20 18:21] LABS: VENOUS BASE EXCESS 2.6 mmol/L (-2-2); VENOUS O2 SATURATION 16.9 % (70-80); VENOUS PCO2 45.5 mmHg (38-52); VENOUS PH 7.402 (7.310-7.410)
[2023-07-20 18:30] LABS: BASO % 0.4 % (0-2.0); EOS % 0.8 % (0-4.5); HEMATOCRIT 23.2 % (35.4-49); HEMOGLOBIN 7.6 GM/dL (11.7-16.9); LYMPH % 32.4 % (8-40); MCH 31.6 pg (25.7-33.7); MCHC 32.8 g/dl (32.0-35.9); MEAN CELL VOLUME 96.3 fl (80-96); MEAN PLT VOLUME 9.7 fl (7.5-11.1); NEUT % 54.4 % (42.8-82.8); PLATELET COUNT 79 10^3/uL (134-434); RBC 2.41 M/mm3 (4.00-5.60); RDW 24.2 % (11.9-15.9); WHITE BLOOD COUNT 4.5 K/mm3 (4.0-10.0)
[2023-07-20 18:37] LABS: INR 1.24 (0.83-1.09); PROTHROMBIN TIME (PATIENT) 14.4 SEC (9.7-13.0)
[2023-07-20 18:40] LABS: ACTIVATED PTT 30.9 SECONDS (25.2-36.5)
[2023-07-20] MEDS: SODIUM CHLORIDE 0.9% 500 ML INFUS.BAG IV ONE (18:50)
[2023-07-20 19:33] LABS: ANISOCYTOSIS 3+; MACROCYTOSIS 0; OVALOCYTE 1+; TARGET CELLS 1+
[2023-07-20 19:38] LABS: URINE APPEARANCE TURBID; URINE BILIRUBIN NEGATIVE (NEGATIVE); URINE COLOR YELLOW; URINE GLUCOSE (UA) NEGATIVE (NEGATIVE); URINE KETONE NEGATIVE (NEGATIVE)
[2023-07-20 19:39] LABS: EPI CELLS 190.3 /uL (0-25.1); HYALINE CASTS 435.76 /uL (0-3.1); PH,URINE 5.5 (5.0-8.0); URINE BACTERIA 604.5 /uL (0-1359); URINE LEUK ESTERASE 4+ (NEGATIVE); URINE NITRITE NEGATIVE (NEGATIVE); URINE PROTEIN 300 (NEGATIVE); URINE UROBILINOGEN 0.2 mg/dL (0.2-1.0); URINE WBC 33139.7 /uL (0-25.8)
[2023-07-20] MEDS ORDERED: ACETAMINOPHEN INJECTION 100 ML IVPB ONE (19:48)
[2023-07-20] MEDS ORDERED: CEFTRIAXONE 1 GM/50 ML BAG ONE (19:48)
[2023-07-20] MEDS: CEFTRIAXONE 1,000 MG in DEXTROSE 5%-WATER - 50 ML IVPB ONE (19:54)
[2023-07-20] MEDS: ACETAMINOPHEN 1000 MG/100 ML BAG IVPB ONE (19:58)
[2023-07-20 20:23] LABS: POTASSIUM 5.4 mmol/L (3.5-5.1)
[2023-07-20 20:26] LABS: ALBUMIN 2.5 g/dl (3.4-5.0)
[2023-07-20 20:28] LABS: CREATININE 1.5 mg/dL (0.55-1.3)
[2023-07-20 20:30] LABS: BILIRUBIN,TOTAL 0.6 mg/dL (0.2-1)
[2023-07-20 23:34] LABS: EPI CELLS >36 /uL (0-25.1); HYALINE CASTS 2 /uL (0-3.1); PH,URINE 5.5 (5.0-8.0); URINE APPEARANCE CLEAR; URINE BACTERIA 34 /uL (0-1359); URINE BILIRUBIN NEGATIVE (NEGATIVE); URINE COLOR YELLOW; URINE GLUCOSE (UA) NEGATIVE (NEGATIVE); URINE KETONE NEGATIVE (NEGATIVE); URINE LEUK ESTERASE 2+ (NEGATIVE); URINE NITRITE NEGATIVE (NEGATIVE); URINE PROTEIN TRACE (NEGATIVE); URINE RBC 22 /uL (0-23.9); URINE UROBILINOGEN 0.2 mg/dL (0.2-1.0); URINE WBC 112 /uL (0-25.8)
[2023-07-21 01:52] LABS: HEMATOCRIT 23.9 % (35.4-49); HEMOGLOBIN 8.1 GM/dL (11.7-16.9); MCH 31.6 pg (25.7-33.7); MCHC 33.8 g/dl (32.0-35.9); MEAN CELL VOLUME 93.4 fl (80-96); MEAN PLT VOLUME 10.2 fl (7.5-11.1); RBC 2.56 M/mm3 (4.00-5.60); RDW 24.1 % (11.9-15.9)
[2023-07-21 01:59] LABS: WHITE BLOOD COUNT 7.6 K/mm3 (4.0-10.0)
[2023-07-21 02:16] LABS: POTASSIUM 5.2 mmol/L (3.5-5.1)
[2023-07-21 02:18] LABS: CALCIUM 8.6 mg/dL (8.5-10.1)
[2023-07-21 02:19] LABS: ALBUMIN 2.1 g/dl (3.4-5.0); BLOOD UREA NITROGEN 58.2 mg/dL (7-18); MAGNESIUM 1.7 mg/dL (1.8-2.4)
[2023-07-21 02:22] LABS: CREATININE 1.4 mg/dL (0.55-1.3); PHOSPHOROUS 3.7 mg/dL (2.5-4.9)
[2023-07-21 02:24] LABS: BILIRUBIN,TOTAL 1.2 mg/dL (0.2-1); TOT PROT 7.2 g/dl (6.4-8.2)
[2023-07-21 04:51] LABS: ANISOCYTOSIS 3+; MACROCYTOSIS 0
[2023-07-21 04:57] LABS: PLATELET COUNT 74 10^3/uL (134-434)
[2023-07-21] MEDS ORDERED: MAGNESIUM SULF 50% (8.12 MEQ/2 ML-1 GM VIAL) IVPB ONE (07:30)
[2023-07-21 08:08] LABS: CALCIUM 8.4 mg/dL (8.5-10.1)
[2023-07-21 08:09] LABS: ALBUMIN 2.1 g/dl (3.4-5.0); BLOOD UREA NITROGEN 56.7 mg/dL (7-18)
[2023-07-21 08:12] LABS: CREATININE 1.3 mg/dL (0.55-1.3)
[2023-07-21 08:13] LABS: TOT PROT 6.7 g/dl (6.4-8.2)
[2023-07-21] MEDS ORDERED: ACETAMINOPHEN 1000 MG/100 ML BAG IVPB PRN (08:54)
[2023-07-21] MEDS: FAMOTIDINE 20 MG TABLET PO SCH (10:48)
[2023-07-21] MEDS: TAMSULOSIN HCL 0.4 MG CAP PO SCH (10:48)
[2023-07-21] MEDS: METOPROLOL TARTRATE 50 MG TABLET (FP) PO SCH (10:48)
[2023-07-21] MEDS: MAGNESIUM SULF 50% (8.12 MEQ/2 ML-1 GM VIAL) IVPB ONE (15:34)
[2023-07-21] MEDS: CEFTRIAXONE 1 GM in DEXTROSE 5%-WATER - 50 ML IVPB SCH (15:35)
[2023-07-21] MEDS: SODIUM CHLORIDE 1,000 ML IV SCH (15:41)
[2023-07-21] MEDS: FEBUXOSTAT 40 MG TAB PO SCH (15:44)
[2023-07-21] MEDS ORDERED: SODIUM CHLORIDE 1,000 ML IV STA (18:13)
[2023-07-22 07:44] LABS: BASO % 0.4 % (0-2.0); EOS % 1.1 % (0-4.5); HEMATOCRIT 21.7 % (35.4-49); HEMOGLOBIN 7.3 GM/dL (11.7-16.9); LYMPH % 46.9 % (8-40); MCH 31.5 pg (25.7-33.7); MCHC 33.6 g/dl (32.0-35.9); MEAN CELL VOLUME 93.7 fl (80-96); MEAN PLT VOLUME 9.9 fl (7.5-11.1); MONO % 11.1 % (3.8-10.2); NEUT % 40.5 % (42.8-82.8); PLATELET COUNT 59 10^3/uL (134-434); RBC 2.31 M/mm3 (4.00-5.60); RDW 23.6 % (11.9-15.9); WHITE BLOOD COUNT 3.1 K/mm3 (4.0-10.0)
[2023-07-22 07:53] LABS: CALCIUM 8.2 mg/dL (8.5-10.1)
[2023-07-22 07:54] LABS: ALBUMIN 1.9 g/dl (3.4-5.0); BLOOD UREA NITROGEN 47.3 mg/dL (7-18); MAGNESIUM 2.1 mg/dL (1.8-2.4)
[2023-07-22 07:57] LABS: CREATININE 1.3 mg/dL (0.55-1.3)
[2023-07-22 07:58] LABS: BILIRUBIN,TOTAL 0.6 mg/dL (0.2-1); TOT PROT 6.9 g/dl (6.4-8.2)
[2023-07-22] MEDS: DOCUSATE SODIUM 100 MG CAPSULE (FP) PO SCH (09:55)
[2023-07-22] MEDS: POLYETHYLENE GLYCOL (HEALTHYLAX) 3350 17 GM PACKET PO SCH (09:55)
[2023-07-22 15:48] VITALS: BMI 24.7
[2023-07-23 08:37] LABS: BASO % 0.5 % (0-2.0); EOS % 0.6 % (0-4.5); HEMOGLOBIN 8.7 GM/dL (11.7-16.9); LYMPH % 38.3 % (8-40); MCH 31.4 pg (25.7-33.7); MCHC 33.5 g/dl (32.0-35.9); MEAN CELL VOLUME 93.7 fl (80-96); MEAN PLT VOLUME 10.5 fl (7.5-11.1); MONO % 12.6 % (3.8-10.2); PLATELET COUNT 51 10^3/uL (134-434); RBC 2.78 M/mm3 (4.00-5.60); RDW 22.2 % (11.9-15.9); WHITE BLOOD COUNT 3.5 K/mm3 (4.0-10.0)
[2023-07-23 08:48] LABS: BLOOD UREA NITROGEN 41.7 mg/dL (7-18); CALCIUM 8.4 mg/dL (8.5-10.1)
[2023-07-23 08:51] LABS: CREATININE 1.2 mg/dL (0.55-1.3)
[2023-07-23 08:52] LABS: TOT PROT 7.1 g/dl (6.4-8.2)
[2023-07-23 08:53] LABS: BILIRUBIN,TOTAL 0.9 mg/dL (0.2-1)
[2023-07-23 08:54] LABS: BILIRUBIN,DIRECT 0.4 mg/dL (0.0-0.2)
[2023-07-23 08:55] LABS: BILIRUBIN,TOTAL 0.9 mg/dL (0.2-1); TOT PROT 7.2 g/dl (6.4-8.2)
[2023-07-23] MEDS: NYSTATIN 100,000 UNIT/GM TOPICAL CREAM 15 GM TUBE TP SCH (13:24)
[2023-07-24] MEDS: ACETAMINOPHEN 1000 MG/100 ML BAG IVPB PRN (00:50)
[2023-07-24 09:55] LABS: HEMATOCRIT 28.5 % (35.4-49); HEMOGLOBIN 9.7 GM/dL (11.7-16.9); MCH 30.9 pg (25.7-33.7); MEAN PLT VOLUME 10.3 fl (7.5-11.1); PLATELET COUNT 50 10^3/uL (134-434); RBC 3.13 M/mm3 (4.00-5.60); RDW 21.8 % (11.9-15.9); WHITE BLOOD COUNT 3.3 K/mm3 (4.0-10.0)
[2023-07-24 10:27] LABS: ALBUMIN 1.9 g/dl (3.4-5.0); BILIRUBIN,TOTAL 0.8 mg/dL (0.2-1); BLOOD UREA NITROGEN 54.8 mg/dL (7-18); CALCIUM 8.3 mg/dL (8.5-10.1); CREATININE 1.5 mg/dL (0.55-1.3); POTASSIUM 5.5 mmol/L (3.5-5.1); TOT PROT 7.1 g/dl (6.4-8.2)
[2023-07-25] MEDS ORDERED: SODIUM ZIRCONIUM CYCLOSILICATE (LOKELMA) 5 GM PACKET PO ONE (15:01)
[2023-07-25] MEDS: SODIUM ZIRCONIUM CYCLOSILICATE (LOKELMA) 5 GM PACKET PO ONE (18:03)
[2023-07-25] MEDS: ACETAMINOPHEN 1000 MG/100 ML BAG IVPB ONE (23:08)
[2023-07-26 07:45] LABS: HEMATOCRIT 26.4 % (35.4-49); HEMOGLOBIN 8.7 GM/dL (11.7-16.9); MCH 30.8 pg (25.7-33.7); MCHC 33.1 g/dl (32.0-35.9); MEAN CELL VOLUME 93.1 fl (80-96); RBC 2.83 M/mm3 (4.00-5.60); RDW 20.8 % (11.9-15.9); WHITE BLOOD COUNT 3.7 K/mm3 (4.0-10.0)
[2023-07-26 08:01] LABS: CHLORIDE 96 mmol/L (98-107); SODIUM 128 mmol/L (136-145)
[2023-07-26 08:09] LABS: CALCIUM 8.2 mg/dL (8.5-10.1); CO2 24 mmol/L (21-32)
[2023-07-26 08:10] LABS: ALBUMIN 1.8 g/dl (3.4-5.0)
[2023-07-26 08:12] LABS: GLUCOSE,RANDOM 289 mg/dL (74-106)
[2023-07-26 08:15] LABS: SGPT/ALT 48 U/L (13-61)
[2023-07-26 08:16] LABS: SGOT/AST 47 U/L (15-37)
[2023-07-26 08:17] LABS: BILIRUBIN,TOTAL 0.5 mg/dL (0.2-1); TOT PROT 7.2 g/dl (6.4-8.2)
[2023-07-26 08:20] LABS: MAGNESIUM 2.5 mg/dL (1.8-2.4)
[2023-07-26 08:23] LABS: ALK PHOS 127 U/L (45-117); ANION GAP 8 mmol/L (4-13); POTASSIUM 6.1 mmol/L (3.5-5.1)
[2023-07-26] MEDS: SODIUM ZIRCONIUM CYCLOSILICATE (LOKELMA) 5 GM PACKET PO ONE (09:39)
[2023-07-26 10:03] LABS: ANISOCYTOSIS 2+; MACROCYTOSIS 0
[2023-07-26 12:59] VITALS: BP 94/56; PULSE 120; RESP 20; TEMP 99.1
== END 2023-07-26 12:20 | disposition hospice, inpatient (51) | DRG 812 ==
LOC: JER 17:14 → JERBED 19:20 → J4S 07-21 00:18
PROVIDERS: ADMIT Internal Medicine; ATTEND Internal Medicine
PROC: 30233N1 Transfusion of Nonautologous Red Blood Cells into Peripheral Vein, Percutaneous Approach (ICD-10-PCS; principal; 2023-07-20)
DX: D46.9 Myelodysplastic syndrome, unspecified (principal); N39.0 Urinary tract infection, site not specified; E87.1 Hypo-osmolality and hyponatremia; E44.0 Moderate protein-calorie malnutrition; N17.9 Acute kidney failure, unspecified; D61.818 Other pancytopenia; I10 Essential (primary) hypertension; E78.5 Hyperlipidemia, unspecified; I25.10 Atherosclerotic heart disease of native coronary artery without angina pectoris; E87.5 Hyperkalemia; D69.59 Other secondary thrombocytopenia; E83.42 Hypomagnesemia; Z68.24 Body mass index [BMI] 24.0-24.9, adult
CPT/HCPCS: 0241U-QW; 36415; 36430; 36511; 71045-TC-FY; 72170-TC-FY; 73521-TC-FY; 80048; 80053; 80076; 81003; 82533; 82550; 82803; 82962; 83010; 83605; 83615; 83735; 84100; 84484; 85025; 85027; 85045; 85610; 85730; 86850; 86880; 86900; 86901; 86922; 87040; 87086; 87186; 93005; 93010; 99283-25; J0131; P9038; P9058